=== PATIENT | male | born 1955 | race Caucasian/White ===

== ENCOUNTER 2020-07-28 09:51 | Outpatient (REF) | payer MEDICARE, BC, SELFPAY ==
[2020-07-28 12:07] LABS: Alanine Aminotransferase 11 U/L (0-40); Albumin Level 4.3 g/dL (3.5-5.0); Alkaline Phosphatase 77 U/L (39-117); Anion Gap 15 (12-20); Aspartate Amino Transferase 13 U/L (5-37); Bilirubin Total 0.2 mg/dL (0.0-1.0); Blood Urea Nitrogen 16 mg/dL (9-16); Calcium 8.9 mg/dL (8.4-10.2); Carbon Dioxide 24 mmol/L (22-29); Chloride 105 mmol/L (96-108); Cholesterol 226 mg/dL; Estimated Glomerular Filt Rate > 60; Glucose Fasting 118 mg/dL (60-99); HDL Cholesterol 54 mg/dL; LDL Cholesterol Calculated 160 mg/dl; Potassium 4.6 mmol/l (3.3-5.1); Sodium 139 mmol/L (135-145); Total Protein 6.6 g/dL (6.5-8.0); Triglycerides 63 mg/dL
[2020-07-28 12:13] LABS: Prostate Specific Antigen Scr 5.04 ng/mL (<0.05-4.0); TSH reflex Free T4 0.62 mIU/mL (0.32-4.0)
== END 2020-07-28 09:52 | disposition home or self-care (01) ==
LOC: HO.HMGCLDS 09:51
PROVIDERS: PCP Nurse Practitioner Family; Visit Provider Nurse Practitioner Family
DX: K21.9 Gastro-esophageal reflux disease without esophagitis (principal); E78.5 Hyperlipidemia, unspecified; Z12.5 Encounter for screening for malignant neoplasm of prostate
CPT/HCPCS: 80053; 80061; 84153; 84443

== ENCOUNTER → 2020-09-16 16:00 | Outpatient (BNVA) | payer MEDICARE, BC, SELFPAY | PROVIDERS: PCP Nurse Practitioner Family; Visit Provider Urology | DX: R97.20 Elevated prostate specific antigen [PSA] (principal) | CPT/HCPCS: Q3014 ==

== ENCOUNTER 2020-10-01 08:13 | Outpatient (REF) | payer MEDICARE, BC, SELFPAY ==
--- NOTE | ~2020-10-01 | XR_ITS ---
EXAMINATION: XR SHOULDER, RIGHT CLINICAL INFORMATION: Pain COMPARISON: None TECHNIQUE: AP external rotation, Grashey, scapular Y, and axillary views of the right shoulder. FINDINGS: Bone alignment is normal. No fracture or dislocation is seen. The glenohumeral joint is normal. There is arthritis at the acromioclavicular joint. Soft tissues are unremarkable. XR/XR shoulder RT min 2V IMPRESSION: Arthritis at the acromioclavicular joint.
[2020-10-01 11:48] LABS: Cholesterol 144 mg/dL; HDL Cholesterol 43 mg/dL; LDL Cholesterol Calculated 91 mg/dl; Triglycerides 52 mg/dL
== END 2020-10-01 08:14 | disposition home or self-care (01) ==
LOC: HO.HMGCLDS 08:13
PROVIDERS: Absent Provider Internal Medicine; PCP Nurse Practitioner Family; Visit Provider Nurse Practitioner Family
DX: E78.5 Hyperlipidemia, unspecified (principal); M25.511 Pain in right shoulder
CPT/HCPCS: 36415; 73030; 80061

== ENCOUNTER 2021-04-09 07:43 | Outpatient (REF) | payer MEDICARE, BC, SELFPAY ==
[2021-04-09 13:27] LABS: PSA,Total (Free>4and<10) 7.41 ng/mL (0.00-4.00)
[2021-04-11 13:02] LABS: Free Prostate Spec Ag 1.7 ng/mL; Percent Free Prostate Spec Ag 28 % (calc) (>25); Prostate Specific Ag Total 6.1 ng/mL (< OR = 4.0)
== END 2021-04-09 07:44 | disposition home or self-care (01) ==
LOC: HO.HMGCLDS 07:43
PROVIDERS: PCP Nurse Practitioner Family; Visit Provider Urology
DX: R97.20 Elevated prostate specific antigen [PSA] (principal); N40.1 Benign prostatic hyperplasia with lower urinary tract symptoms; N13.8 Other obstructive and reflux uropathy; Z12.5 Encounter for screening for malignant neoplasm of prostate
CPT/HCPCS: 36415; 84153; 84154

== ENCOUNTER → 2021-04-13 15:53 | Outpatient (BNVA) | payer MEDICARE, BC, SELFPAY | PROVIDERS: PCP Nurse Practitioner Family; Visit Provider Urology | CPT/HCPCS: 99212 ==

== ENCOUNTER 2021-09-13 13:13 | Outpatient (REF) | payer MEDICARE, BC, SELFPAY ==
[2021-09-13 14:51] LABS: PSA,Total (Free>4and<10) 4.73 ng/mL (0.00-4.00)
[2021-09-15 14:16] LABS: Free Prostate Spec Ag 1.2 ng/mL; Percent Free Prostate Spec Ag 27 % (calc) (>25); Prostate Specific Ag Total 4.5 ng/mL (< OR = 4.0)
== END 2021-09-13 13:14 | disposition home or self-care (01) ==
LOC: HO.HMGCLDS 13:13
PROVIDERS: PCP Urology; Visit Provider Urology
DX: Z12.5 Encounter for screening for malignant neoplasm of prostate (principal); N13.8 Other obstructive and reflux uropathy; N40.1 Benign prostatic hyperplasia with lower urinary tract symptoms
CPT/HCPCS: 36415; 84153; 84154

== ENCOUNTER → 2021-10-14 12:14 | Outpatient (BNVA) | payer MEDICARE, BC, SELFPAY | PROVIDERS: PCP Urology; Visit Provider Urology | DX: R97.20 Elevated prostate specific antigen [PSA] (principal); N40.1 Benign prostatic hyperplasia with lower urinary tract symptoms; N13.8 Other obstructive and reflux uropathy | CPT/HCPCS: Q3014 ==

== ENCOUNTER 2022-04-10 08:55 | Outpatient (REF) | payer MEDICARE, BC, SELFPAY ==
[2022-04-10 12:15] LABS: PSA,Total (Free>4and<10) 3.84 ng/mL (0.00-4.00)
== END 2022-04-10 08:56 | disposition home or self-care (01) ==
LOC: HO.HMGCLDS 08:55
PROVIDERS: Visit Provider Urology
DX: Z12.5 Encounter for screening for malignant neoplasm of prostate (principal); N13.8 Other obstructive and reflux uropathy; N40.1 Benign prostatic hyperplasia with lower urinary tract symptoms
CPT/HCPCS: 36415; 84153

== ENCOUNTER → 2022-04-18 12:06 | Outpatient (BNVA) | payer MEDICARE, BC, SELFPAY | PROVIDERS: Visit Provider Urology | DX: N40.1 Benign prostatic hyperplasia with lower urinary tract symptoms (principal); N13.8 Other obstructive and reflux uropathy; R97.20 Elevated prostate specific antigen [PSA] | CPT/HCPCS: Q3014 ==

== ENCOUNTER 2022-07-25 08:59 | Outpatient (REF) | payer MEDICARE, BC, SELFPAY ==
[2022-07-25 11:29] LABS: MANUAL DIFF FLAG NO
[2022-07-25 11:41] LABS: Basophils Percent Auto 0.6 % (0-2); Eosinophils Absolute Auto 0.1 X10*3/uL (0.0-0.4); Eosinophils Percent Auto 1.6 % (0-4); Hematocrit 45.6 % (42.0-52.0); Hemoglobin 14.8 g/dl (14.0-18.0); Imm Gran Abs Auto 0.02 X10*3/uL (0.00-0.03); Imm Gran Pct Auto 0.3 % (0.0-0.4); Lymphocytes Absolute Auto 1.9 X10*3/uL (1.2-4.9); Lymphocytes Percent Auto 30.6 % (20-40); Mean Corpuscular HGB Conc 32.5 g/dl (31.0-36.0); Mean Corpuscular Hemoglobin 27.7 pg (27.0-33.0); Mean Corpuscular Volume 85.2 fL (80.0-98.0); Mean Platelet Volume 10.7 fL (9.4-12.4); Monocytes Absolute Auto 0.6 X10*3/uL (0.1-1.2); Monocytes Percent Auto 9.8 % (2-11); Neutrophils Absolute Auto 3.5 x10*3/uL (2.0-8.3); Neutrophils Percent Auto 57.1 % (45-73); Platelet Count 307 X10*3/uL (160-400); Red Blood Count 5.35 X10*6/uL (4.60-5.80); Red Cell Distribution Width 13.2 % (11.0-16.0); White Blood Count 6.2 X10*3/uL (4.8-10.8)
[2022-07-25 13:43] LABS: Alanine Aminotransferase 18 U/L (0-40); Alkaline Phosphatase 80 U/L (39-117); Anion Gap 10 (12-20); Aspartate Amino Transferase 17 U/L (5-37); Bilirubin Total 0.8 mg/dL (0.0-1.0); Blood Urea Nitrogen 19 mg/dL (9-16); Calcium 8.9 mg/dL (8.4-10.2); Carbon Dioxide 29 mmol/L (22-29); Chloride 109 mmol/L (96-108); Cholesterol 179 mg/dL; Estimated Glomerular Filt Rate > 60; Glucose Fasting 100 mg/dL (60-99); HDL Cholesterol 37 mg/dL; LDL Cholesterol Calculated 124 mg/dl; Potassium 4.5 mmol/L (3.3-5.1); Sodium 143 mmol/L (135-145); TSH reflex Free T4 3.23 uIU/mL (0.32-4.0); Triglycerides 90 mg/dL
[2022-07-25 17:00] LABS: Appearance Urine Clear; Color Urine Yellow; Glucose Urine UA Negative (Negative); Leukocyte Esterase Urine Negative (Negative); Nitrite Urine Negative (Negative); Specific Gravity - Urine 1.025 (1.005-1.025); Urine Blood Negative (Negative); Urine Ketones Trace mg/dL (Negative); Urine Protein Trace mg/dL (Neg-Trace)
== END 2022-07-25 09:00 | disposition home or self-care (01) ==
LOC: HO.HMGCLDS 08:59
PROVIDERS: PCP Nurse Practitioner Family; Visit Provider Nurse Practitioner Family
DX: Z00.00 Encounter for general adult medical examination without abnormal findings (principal)
CPT/HCPCS: 36415; 80053; 80061; 81003; 84443; 85025

== ENCOUNTER 2022-09-06 11:21 | Outpatient (REF) | payer MEDICARE, BC, SELFPAY ==
[2022-09-06 14:44] LABS: Prostate Specific Antigen 4.68 ng/mL (<0.05-4.0)
== END 2022-09-06 11:22 | disposition home or self-care (01) ==
LOC: HO.HMGCLDS 11:21
PROVIDERS: PCP Nurse Practitioner Family; Visit Provider Urology
DX: R97.20 Elevated prostate specific antigen [PSA] (principal); Z12.5 Encounter for screening for malignant neoplasm of prostate
CPT/HCPCS: 36415; 84153

== ENCOUNTER → 2022-10-27 14:04 | Outpatient (BNVA) | payer MEDICARE, BC, SELFPAY | PROVIDERS: PCP Nurse Practitioner Family; Visit Provider Urology | DX: N40.1 Benign prostatic hyperplasia with lower urinary tract symptoms (principal); N13.8 Other obstructive and reflux uropathy; R97.20 Elevated prostate specific antigen [PSA] | CPT/HCPCS: Q3014 ==

== ENCOUNTER 2022-11-08 11:06 | Outpatient (REF) | payer MEDICARE, BC, SELFPAY | END 2022-11-08 11:07 | disposition home or self-care (01) | LOC: HO.SH 11:06 | PROVIDERS: Visit Provider Nurse Practitioner Family | DX: Z01.118 Encounter for examination of ears and hearing with other abnormal findings (principal); H90.3 Sensorineural hearing loss, bilateral | CPT/HCPCS: 92557; 92567 ==

== ENCOUNTER 2022-11-22 09:24 | Outpatient (REF) | payer MEDICARE, BC, SELFPAY ==
[2022-11-22 11:20] LABS: MANUAL DIFF FLAG NO
[2022-11-22 11:46] LABS: Basophils Absolute Auto 0.1 X10*3/uL (0.0-0.2); Basophils Percent Auto 0.9 % (0-2); Eosinophils Absolute Auto 0.1 X10*3/uL (0.0-0.4); Eosinophils Percent Auto 2.1 % (0-4); Hematocrit 45.3 % (42.0-52.0); Hemoglobin 14.9 g/dl (14.0-18.0); Imm Gran Abs Auto 0.01 X10*3/uL (0.00-0.03); Imm Gran Pct Auto 0.2 % (0.0-0.4); Lymphocytes Absolute Auto 1.9 X10*3/uL (1.2-4.9); Lymphocytes Percent Auto 35.4 % (20-40); Mean Corpuscular HGB Conc 32.9 g/dl (31.0-36.0); Mean Corpuscular Hemoglobin 27.5 pg (27.0-33.0); Mean Corpuscular Volume 83.6 fL (80.0-98.0); Mean Platelet Volume 10.6 fL (9.4-12.4); Monocytes Absolute Auto 0.6 X10*3/uL (0.1-1.2); Monocytes Percent Auto 11.4 % (2-11); Neutrophils Absolute Auto 2.6 x10*3/uL (2.0-8.3); Platelet Count 311 X10*3/uL (160-400); Red Blood Count 5.42 X10*6/uL (4.60-5.80); Red Cell Distribution Width 13.2 % (11.0-16.0); White Blood Count 5.3 X10*3/uL (4.8-10.8)
[2022-11-22 11:52] LABS: Alanine Aminotransferase 15 U/L (0-40); Albumin Level 3.9 g/dL (3.5-5.0); Alkaline Phosphatase 76 U/L (39-117); Anion Gap 10 (12-20); Aspartate Amino Transferase 19 U/L (5-37); Bilirubin Total 1.6 mg/dL (0.0-1.0); Blood Urea Nitrogen 18 mg/dL (9-16); Calcium 9.1 mg/dL (8.4-10.2); Carbon Dioxide 30 mmol/L (22-29); Chloride 106 mmol/L (96-108); Cholesterol 183 mg/dL; Estimated Glomerular Filt Rate > 60; Glucose Fasting 103 mg/dL (60-99); HDL Cholesterol 37 mg/dL; LDL Cholesterol Calculated 122 mg/dl; Potassium 4.9 mmol/L (3.3-5.1); Sodium 141 mmol/L (135-145); Total Protein 5.9 g/dL (6.5-8.0); Triglycerides 121 mg/dL
[2022-11-22 12:13] LABS: TSH reflex Free T4 2.79 uIU/mL (0.32-4.0)
[2022-11-22 14:07] LABS: Appearance Urine Cloudy; Color Urine Yellow; Glucose Urine UA Negative (Negative); Leukocyte Esterase Urine Negative (Negative); Nitrite Urine Negative (Negative); PH 7.5 (5.0-9.0); Urine Blood Negative (Negative); Urine Ketones Negative (Negative); Urine Protein Negative (Neg-Trace)
== END 2022-11-22 09:25 | disposition home or self-care (01) ==
LOC: HO.HMGCLDS 09:24
PROVIDERS: PCP Nurse Practitioner Family; Visit Provider Nurse Practitioner Family
DX: E78.5 Hyperlipidemia, unspecified (principal); R17 Unspecified jaundice
CPT/HCPCS: 36415; 80053; 80061; 81003; 84443; 85025

== ENCOUNTER 2022-12-12 13:21 | Outpatient (REF) | payer MEDICARE, BC, SELFPAY ==
--- NOTE | ~2022-12-12 | US_ITS ---
EXAMINATION: US ABDOMEN COMPLETE CLINICAL INFORMATION: Unspecified jaundice. COMPARISON: X-ray abdomen 10/25/2018. TECHNIQUE: Real-time imaging of the abdominal viscera. FINDINGS: PANCREAS: Normal. ABDOMINAL AORTA: The proximal, mid, and distal segments are normal in caliber. INFERIOR VENA CAVA: Visualized portions are normal. LIVER: The liver is normal in size. The liver contour is normal. Parenchymal echogenicity is normal. No focal hepatic lesion. There is no intrahepatic biliary duct dilatation seen. GALLBLADDER: Surgically absent. COMMON BILE DUCT: Normal in caliber measuring 0.4 cm in diameter. RIGHT KIDNEY: Normal. No hydronephrosis. No renal calculi or focal parenchymal lesions. The kidney measures 9.5 cm in maximum dimension. LEFT KIDNEY: Normal. No hydronephrosis. No renal calculi or focal parenchymal lesions. The kidney measures 10.8 cm in maximum dimension. SPLEEN: Normal. The spleen measures 9.5 cm in maximum dimension. FREE FLUID: None. US/US abdomen complete IMPRESSION: Unremarkable abdominal ultrasound.
== END 2022-12-12 13:22 | disposition home or self-care (01) ==
LOC: HO.US 13:21
PROVIDERS: PCP Nurse Practitioner Family; Visit Provider Nurse Practitioner Family
DX: R17 Unspecified jaundice (principal)
CPT/HCPCS: 76700

== ENCOUNTER 2023-01-18 13:24 | Outpatient (REF) | payer MEDICARE, BC, SELFPAY ==
[2023-01-18 14:43] LABS: Immature Retic Fraction 2.8 % (2.3-13.4)
[2023-01-18 15:12] LABS: Bilirubin Direct 0.2 mg/dL (0.0-0.5); Bilirubin Total 0.8 mg/dL (0.0-1.0)
[2023-01-22 17:33] LABS: Haptoglobin 125 mg/dL (43-212)
[2023-01-25 11:33] LABS: Transglutaminase Ab IgG <1.0 U/mL; Transglutaminase IgA <1.0 U/mL
== END 2023-01-18 13:25 | disposition home or self-care (01) ==
LOC: HO.HMGCLDS 13:24
PROVIDERS: PCP Nurse Practitioner Family; Visit Provider Nurse Practitioner Family
DX: R17 Unspecified jaundice (principal)
CPT/HCPCS: 36415; 82247; 82248; 83010; 85045; 86364

== ENCOUNTER 2023-04-26 09:28 | Outpatient (REF) | payer MEDICARE, SELFPAY ==
[2023-04-26 12:37] LABS: PSA,Total (Free>4and<10) 4.32 ng/mL (0.00-4.00)
[2023-04-27 13:54] LABS: Free Prostate Spec Ag 0.9 ng/mL; Percent Free Prostate Spec Ag 20 % (calc) (>25); Prostate Specific Ag Total 4.4 ng/mL (< OR = 4.0)
== END 2023-04-26 09:29 | disposition home or self-care (01) ==
LOC: HO.HMGCLDS 09:28
PROVIDERS: PCP Nurse Practitioner Family; Visit Provider Urology
DX: Z12.5 Encounter for screening for malignant neoplasm of prostate (principal); N40.1 Benign prostatic hyperplasia with lower urinary tract symptoms; N13.8 Other obstructive and reflux uropathy
CPT/HCPCS: 36415; 84153; 84154

== ENCOUNTER 2023-05-02 11:32 | Outpatient (AMB) | payer MEDICARE, BC, SELFPAY ==
--- NOTE | 2023-05-02 11:36 | A.OFFVIS_ITS ---
Intake Intake Visit Reasons: 6M PSA(set) Intake Note: Patient is present for PVR Urology Med: FINASTERIDE Antibiotic Allergy: NONE Blood Thinner: NONE Pharmacy: [facility] PVR: 123 mL Md Pediatric Allergist Required: No Allergies No Known Allergies Allergy (Verified 05/02/23 11:39) Medication List - Last Reconciled 05/02/23 by Scotty Martínez MD finasteride 5 mg PO DAILY 90 days HPI HPI Comments History of Present Illness Details Klever is a very pleasant male. He is a patient of Dr. Farrell. Seen for the following urologic conditions - lower urinary tract symptoms - elevated PSA PAT 2+ prostate Results discussed - PSA remains Follow-up 6 months Good effect from finasteride May take Sunday, Sunday, Sunday Elevated PSA/LUTS He presents for - further evaluation of elevated PSA Current management is finasteride - 3 times a week has slight rise from 3.8 up to 4.5 Laboratory investigations include - a total PSA evaluation 02/02 5.1, 08/08 5.1 - 04/09 6.1 F28%, 09/10 4.5 27%, 04/10 3.8, 09/11 4.5, 05/12 4.3 20% Imaging investigations include - none Individualized Prostate Cancer Risk Calculator - 5-10% risk of prostate cancer. A TRUS biopsy - has not been performed Symptoms include - 09/09 minimal Overall symptoms are mild Therapeutic plan will be - continue finasteride PSA surveillance PFSH Medical History Shoulder pain, right Surgical History History of neck surgery Hx of cholecystectomy Family History Father CKD (chronic kidney disease) Mother No problems noted. Maternal Grandmother Medical history non-contributory Social History Housing: House Alcohol intake: current Alcohol intake frequency: holidays/special occasions only Patient Tobacco Use Status: Former Tobacco user Quit Date: quit 23 years ago e-Cigarette/Vaping Use: Never Used Second Hand Smoke Exposure: Yes service: Yes Current occupational status: retired Cognitive needs: No Hearing needs: No Vision needs: No Review of Systems Const Denies chills and Denies fever(s) Card Reports no additional complaints and Denies syncope Resp Denies cough GI Denies abdominal pain and Denies heartburn Reports as per HPI and Denies change in libido Neuro Denies syncope Psych Denies change in libido Endo Denies change in libido Physical Exam Const General: cooperative, healthy appearing, comfortable and no acute distress Orientation/consciousness: patient oriented x3 HEENT Face and sinus: Yes normal facial exam Mouth: moist mucous membranes Neck Neck: Yes normal visual inspection, Yes full ROM and Yes trachea midline Chest Chest palpation & inspection: normal inspection of the chest Resp Effort & Inspection: normal respiratory effort, able to speak in complete sentences and no respiratory distress GI Inspection: Yes normal to inspection Rectal Exam - Male: Yes normal sphincter tone and Yes prostate normal Male General Exam: Yes normal external exam Penis: normal penis and circumcised Meatus: meatus normal Scrotum: scrotum normal Testes: Testes normal Back/Spine/Pelvis Cervical Spine: normal cervical lordosis Thoracic/Lumbar Spine: thoracic and lumbar spine normal to inspection Skin General skin exam: no rashes or lesions noted Neuro General: patient oriented x3, gait normal, tone normal and moves all extremities Extrem General: Yes normal to inspection and Yes capillary refill normal Assessment & Plan Assessment & Plan (1) BPH w urinary obs/LUTS: Code(s): N40.1 - Benign prostatic hyperplasia with lower urinary tract symptoms; N13.8 - Other obstructive and reflux uropathy Plan Six month follow-up PSA tele Orders: Orders AMB Post Void Residual by ultrasound Today N13.8 - Other obstructive and reflux uropathy, N40.1 - Benign prostatic hyperplasia with lower urinary tract symptoms, R17 - Unspecified jaundice PSA,Total (Free>4and<10) 6 Months R97.20 - Elevated prostate specific antigen [PSA] Patient Instructions: Imaging studies, laboratory and physical exam results were discussed and reviewed in detail. No major barriers to patient understanding were identified. An opportunity to ask questions regarding the treatment plan was provided. All questions were answered. The patient expressed understanding and agreement with the above treatment plan. The patient is aware they should contact our office by phone for worsening of their current condition or the appearance of new urologic symptoms. Compliance is encouraged with any medications and followup testing that is ordered. It is a privilege to participate in the urologic care of your patient. If you have any questions or concerns regarding treatment for the above conditions, or other urologic issues, please do not hesitate to contact me. The office telephone contact is [phone]. This note is constructed using voice recognition software. While every effort has been made to ensure accuracy publicity person errors may have been included. Yours sincerely, Dr Scotty Martínez MD, [facility] - Urology Providers of Expert, Compassionate Care for the Genitourinary System Coding Level of Care Code Est Pt Level 3 (63509) Diagnoses BPH w urinary obs/LUTS N40.1; N13.8
== END 2023-05-02 12:03 | disposition home or self-care (01) ==
PROVIDERS: PCP Nurse Practitioner Family; Visit Provider Urology
DX: N40.1 Benign prostatic hyperplasia with lower urinary tract symptoms (principal); N13.8 Other obstructive and reflux uropathy
CPT/HCPCS: 99213

== ENCOUNTER → 2023-05-02 11:32 | Outpatient (BNVA) | payer MEDICARE, BC, SELFPAY | PROVIDERS: Visit Provider Urology | DX: N40.1 Benign prostatic hyperplasia with lower urinary tract symptoms (principal); N13.8 Other obstructive and reflux uropathy | CPT/HCPCS: 99212 ==

== ENCOUNTER 2023-07-25 10:50 | Outpatient (AMB) | payer MEDICARE, BC, SELFPAY ==
--- NOTE | 2023-07-25 10:53 | A.OFFPC_ITS ---
Vital Signs 07/25/23 10:56 Weight 162 lb BP 118/80 Blood Pressure Location Lt brachial Position Sitting Pulse 51 Pulse Source Pulse Oximeter Pulse Oximetry (%) 100 Oxygen Delivery Method Room Air Intake Visit Reasons: PE Intake Note: Patient here for physical exam and would like to talk about acid reflux and has been taking his wifes omeprazole 20mg. last colonoscopy: 2020 and refuses to have another. Allergies No Known Allergies Allergy (Verified 07/25/23 10:58) Tobacco use date assessed: 11/21/22 Fall risk assessment: No Falls in past year Last assessed Fall Risk: 07/25/23 Dental Screening Dental Screen Date: 07/25/23 Did you have a dental visit in the last 12 months?: Yes Did you have a dental problem in the last 6 months where you did not have access to dental care?: No Was dental information given to patient?: Patient has dentist HPI PE HPI Details Pt is here for a PE. Will order labs. Colon screen is up to date. PSA is up to date, sees urology. Refused all vaccines today, except TdaP PFSH Medical History Shoulder pain, right Surgical History History of neck surgery Hx of cholecystectomy Family History Father CKD (chronic kidney disease) Mother No problems noted. Maternal Grandmother Medical history non-contributory Social History Housing: House Alcohol intake: current Alcohol intake frequency: holidays/special occasions only Patient Tobacco Use Status: Former Tobacco user Quit Date: quit 23 years ago e-Cigarette/Vaping Use: Never Used Second Hand Smoke Exposure: Yes service: Yes Current occupational status: retired Cognitive needs: No Hearing needs: No Vision needs: No Questionnaire PHQ-9 Over the last 2 weeks, how often have you been bothered by any of the following problems? 1. Little interest or pleasure in doing things: not at all 2. Feeling down, depressed, or hopeless: not at all 3. Trouble falling or staying asleep, or sleeping too much: not at all 4. Feeling tired or having little energy: not at all 5. Poor appetite or overeating: not at all 6. Feeling bad about yourself - or that you are a failure or have let yourself or your family down: not at all 7. Trouble concentrating on things, such as reading the newspaper or watching television: not at all 8. Moving or speaking so slowly that other people could have noticed. Or the opposite - being so fidgety or restless that you have been moving around a lot more than usual: not at all 9. Thoughts that you would be better off or of hurting yourself in some way: not at all Total score: 0 Depression Screening Interpretation: Negative Depression Screening Done: Yes [id number] - PHQ-9 Billing: Yes Source: Developed by Drs. Gigi Luque, Elina Keith, Jose Maria Hernandez and colleagues, with an educational wilfrid from [employer]. Thrive Questionnaire Date Thrive assessed: 07/25/23 I am a: Patient What is your living situation today?: I have a steady place to live Within the past 12 months, did the food you bought not last and you didn't have the money to get more?: Never true Within the past 12 months, did you worry whether your food would run out before you got money to buy more?: Never true Do you have trouble paying for medicines?: No Do you have trouble getting transportation to medical appointments?: No Do you have trouble paying your heating and electricity bill?: No Do you have trouble taking care of your child, family member or friend?: No Do you have trouble with day-to-day activities such as bathing, preparing meals, shopping, managing finances, etc.?: No Are you currently unemployed and looking for a job?: No Are you interested in more education?: No AUDIT C Alcohol Use Questionnaire (AUDIT-C) 1. How often do you have a drink containing alcohol?: Monthly or less 2. How many drinks containing alcohol do you have on a typical day when you are drinking?: 1 or 2 3. How often do you have six or more drinks on one occasion?: Never Total Score: 1 Score Reviewed/Action Taken: No JOSE CARLOS-7 AMB Questionnaire JOSE CARLOS-7 Date JOSE CARLOS - 7 assessed: 07/24/22 Source: Developed by Drs. Gigi Luque, Elina Keith, Jose Maria Hernandez and colleagues, with an educational wilfrid from [employer]. Review of Systems Const Denies chills and Denies fever(s) Eyes Denies blurry vision ENT Denies vertigo, Denies dizziness and Denies sore throat Card Denies chest pain at rest, Denies chest pain with activity, Denies diaphoresis, Denies dyspnea and Denies dyspnea on exertion Resp Denies cough, Denies dyspnea, Denies dyspnea on exertion and Denies wheezing GI Denies abdominal pain, Denies melena, Denies hematochezia, Denies constipation, Denies diarrhea and Denies loose stools Denies hematuria Musc Denies numbness and Denies tingling Skin/Breast Denies lesions Neuro Denies vertigo, Denies dizziness, Denies numbness and Denies tingling Psych Denies anxiety, Denies depression, Denies homicidal ideation, Denies suicidal ideation and Denies other (substance abuse) Aller/Immun Denies wheezing Physical exam (Primary Care) Vital Signs: Last Vital Signs Pulse 51 07/25/23 10:56 BP 118/80 07/25/23 10:56 Pulse Ox 100 07/25/23 10:56 Oxygen Delivery Method Room Air 07/25/23 10:56 Tobacco/Smoking Status: Tobacco use Status Tobacco use date assessed 11/21/22 07/25/23 10:55 Patient Tobacco Use Status Former Tobacco user 07/25/23 10:55 e-Cigarette/Vaping Use Never Used 07/25/23 10:55 PHQ-9: PHQ-9 Score PHQ-9: Total score 0 07/25/23 11:44 Depression Screening Interpretation: Negative Thrive Assessment: Date of Thrive Assessment Date Thrive assessed 07/25/23 07/25/23 11:44 Const General: cooperative Nutritional Appearance: well nourished Orientation/consciousness: patient oriented x3 HENMT Head: Yes normal to inspection, Yes normocephalic and Yes atraumatic Ears: TM's normal bilaterally Eyes General: appearance normal, both eyes and all related structures Alignment and Position: alignment normal and position normal Neck Neck: Yes normal visual inspection and Yes no lymphadenopathy Thyroid: Thyroid normal Resp Effort & Inspection: normal respiratory effort Auscultation: clear to auscultation bilaterally Cardio Rate: regular rate Rhythm: regular rhythm Heart sounds: S1 normal heart sound present, S2 normal heart sound present and no murmurs GI Palpation (GI): Soft to palpation and nontender Auscultation: normal bowel sounds Male General Exam: Yes normal external exam Penis: normal penis Scrotum: scrotum normal, testes descended bilaterally and no inguinal hernias Testes: no testicular mass Skin Rashes: no rashes Neuro General: patient oriented x3, moves all extremities, no focal motor deficits and deep tendon reflexes 2+ bilaterally Romberg Test: Negative Psych Appearance: grossly normal Mental Status: mental status grossly normal Speech and movement: Normal speech and movement present Affect: normal affect Attitude: cooperative Thought process: Normal thought process present Thought content: Normal thought content present Insight: Good insight present (Psych) Judgement: Good judgement present (Psych) Immunizations Boostrix Tdap 2.5 Lf unit-8 mcg-5 Lf/0.5 mL intramuscular syringe Performing Provider: YUVAL Purvis Performing Location: [facility] Administered by: GUTIERREZ Garner on 07/25/23 11:42 Dose Route Admin Location Dispensed Lot Number Expiration Date NDC Green [employer] Blender 0.5 mL IM Right Deltoid 0.5 mL [id number] 07/25/25 93708-208-33 Asl Analytical VIS Given Date VIS Provided VIS Publication Date 07/25/23 Single Vaccine 21 Eligibility Eligibility Date Funding Source Not [facility] Eligible 07/25/23 Private Assessment and Plan Assessment & Plan (1) Physical exam: Code(s): Z00.00 - Encounter for general adult medical examination without abnormal findings Plan: Labs ordered Plan The patient agreed to the use of a medical social consultant for this encounter. Scribed for YUVAL Weathers by oniel Salazar scribe, on 07/25/2023 at 11:15 EST. Orders: Orders Comprehensive [place]. Panel Fast Today Z00.00 - Encounter for general adult medical examination without abnormal findings Lipid Panel Today Z00.00 - Encounter for general adult medical examination without abnormal findings TDaP Immunization Today Z23 - Encounter for immunization Complete Blood Count Auto Diff Today Z00.00 - Encounter for general adult medical examination without abnormal findings TSH reflex Free T4 Today Z00.00 - Encounter for general adult medical examination without abnormal findings UA CC w/rflx Micro + Cult Today Z00.00 - Encounter for general adult medical examination without abnormal findings AMB EKG-In Office Today Z00.00 - Encounter for general adult medical examination without abnormal findings Medications: New omeprazole 20 mg PO DAILY 90 caps 1RF 90 days Coding Level of Care Code Est Pt Prev Care >65y(85162) Diagnoses Physical exam Z00.00
[2023-07-25 10:56] VITALS: BP 118/80; PULSE 51; O2SAT 100
== END 2023-07-25 14:27 | disposition home or self-care (01) ==
PROVIDERS: Visit Provider Nurse Practitioner Family
DX: Z00.00 Encounter for general adult medical examination without abnormal findings (principal); Z23 Encounter for immunization
CPT/HCPCS: 90471; 90715; 99397

== ENCOUNTER 2023-07-30 09:20 | Outpatient (REF) | payer MEDICARE, BC, SELFPAY ==
[2023-07-30 11:23] LABS: MANUAL DIFF FLAG NO
[2023-07-30 11:38] LABS: Basophils Percent Auto 0.7 % (0-2); Eosinophils Absolute Auto 0.1 X10*3/uL (0.0-0.4); Eosinophils Percent Auto 2.3 % (0-4); Hematocrit 46.2 % (42.0-52.0); Hemoglobin 15.2 g/dl (14.0-18.0); Imm Gran Abs Auto 0.02 X10*3/uL (0.00-0.03); Imm Gran Pct Auto 0.3 % (0.0-0.4); Lymphocytes Percent Auto 32.4 % (20-40); Mean Corpuscular HGB Conc 32.9 g/dl (31.0-36.0); Mean Corpuscular Hemoglobin 27.9 pg (27.0-33.0); Mean Corpuscular Volume 84.8 fL (80.0-98.0); Mean Platelet Volume 10.5 fL (9.4-12.4); Monocytes Absolute Auto 0.6 X10*3/uL (0.1-1.2); Monocytes Percent Auto 9.9 % (2-11); Neutrophils Absolute Auto 3.3 x10*3/uL (2.0-8.3); Neutrophils Percent Auto 54.4 % (45-73); Platelet Count 297 X10*3/uL (160-400); Red Blood Count 5.45 X10*6/uL (4.60-5.80); Red Cell Distribution Width 13.1 % (11.0-16.0); White Blood Count 6.1 X10*3/uL (4.8-10.8)
[2023-07-30 12:21] LABS: Alanine Aminotransferase 16 U/L (0-40); Albumin Level 3.9 g/dL (3.5-5.0); Alkaline Phosphatase 80 U/L (39-117); Anion Gap 11 (12-20); Aspartate Amino Transferase 17 U/L (5-37); Bilirubin Total 0.4 mg/dL (0.0-1.0); Blood Urea Nitrogen 23 mg/dL (9-16); Calcium 9.1 mg/dL (8.4-10.2); Carbon Dioxide 27 mmol/L (22-29); Chloride 108 mmol/L (96-108); Cholesterol 183 mg/dL (<200); Estimated Glomerular Filt Rate > 60; Glucose Fasting 102 mg/dL (60-99); HDL Cholesterol 43 mg/dL (>40); LDL Cholesterol Calculated 126 mg/dL (<100); Potassium 4.2 mmol/L (3.3-5.1); Sodium 142 mmol/L (135-145); TSH reflex Free T4 1.83 uIU/mL (0.32-4.0); Total Protein 6.2 g/dL (6.5-8.0); Triglycerides 73 mg/dL (<150)
[2023-07-30 13:24] LABS: Appearance Urine Clear; Color Urine Yellow; Glucose Urine UA Negative (Negative); Leukocyte Esterase Urine Negative (Negative); Nitrite Urine Negative (Negative); PH 6.5 (5.0-9.0); Specific Gravity - Urine 1.025 (1.005-1.025); Urine Blood Negative (Negative); Urine Ketones Negative (Negative); Urine Protein Negative (Neg-Trace)
== END 2023-07-30 09:21 | disposition home or self-care (01) ==
LOC: HO.HMGCLDS 09:20
PROVIDERS: PCP Nurse Practitioner Family; Visit Provider Nurse Practitioner Family
DX: Z00.00 Encounter for general adult medical examination without abnormal findings (principal)
CPT/HCPCS: 36415; 80053; 80061; 81003; 84443; 85025

== ENCOUNTER 2023-10-24 10:03 | Outpatient (REF) | payer MEDICARE, BC, SELFPAY | END 2023-10-24 10:04 | disposition home or self-care (01) | LOC: HO.HMGCLDS 10:03 | PROVIDERS: PCP Nurse Practitioner Family; Visit Provider Urology | DX: Z12.5 Encounter for screening for malignant neoplasm of prostate (principal); R97.20 Elevated prostate specific antigen [PSA] | CPT/HCPCS: 36415; 84153 ==

== ENCOUNTER 2023-10-30 09:04 | Outpatient (AMB) | payer MEDICARE, BC, SELFPAY ==
--- NOTE | 2023-10-30 09:03 | A.OFFVIS_ITS ---
Intake Intake Visit Reasons: 6M PSA(set) Intake Note: Patient presents today for a telehealth follow-up Meds- Finasteride Allergies to Antibiotic- No Known Allergies Blood Thinner- None Leasing Assistant Required: No Allergies No Known Allergies Allergy (Verified 10/30/23 09:18) Medication List - Last Reconciled 10/30/23 by Scotty Martínez MD finasteride 5 mg PO DAILY 90 days omeprazole 20 mg PO DAILY 90 days HPI HPI Comments History of Present Illness Details Klever is a very pleasant male. He is a patient of Dr. Farrell. Seen for the following urologic conditions - lower urinary tract symptoms - elevated PSA Telemedicine Evaluation 15 min Consultation Doximity Reginaldo Video attempted Six-month follow-up PSA Continue good effect Continue six-month surveillance Prior PAT 2+ prostate May take Sunday, Sunday, Sunday Elevated PSA/LUTS He presents for - further evaluation of elevated PSA Current management is finasteride - 3 times a week has slight rise from 3.8 up to 4.5 Laboratory investigations include - a total PSA evaluation 02/02 5.1, 08/08 5.1, 04/09 6.1 F28%, 09/10 4.5 27%, 04/10 3.8, 09/11 4.5, 05/12 4.3 20%, 11/10 3.8 Imaging investigations include - none Individualized Prostate Cancer Risk Calculator - 5-10% risk of prostate cancer. A TRUS biopsy - has not been performed Symptoms include - 09/09 minimal Overall symptoms are mild Therapeutic plan will be - continue finasteride PSA surveillance [facility] Medical History Shoulder pain, right Surgical History History of neck surgery Hx of cholecystectomy Family History Father CKD (chronic kidney disease) Mother No problems noted. Maternal Grandmother Medical history non-contributory Social History Housing: House Alcohol intake: current Alcohol intake frequency: holidays/special occasions only Patient Tobacco Use Status: Former Tobacco user Quit Date: quit 23 years ago e-Cigarette/Vaping Use: Never Used Second Hand Smoke Exposure: Yes service: Yes Current occupational status: retired Cognitive needs: No Hearing needs: No Vision needs: No Review of Systems Const All systems reviewed & are unremarkable except as noted in HPI and below Reports no additional complaints Resp Reports no additional complaints GI Reports no additional complaints Reports as per HPI Musc Reports no additional complaints Physical Exam Telemedicine evaluation Appropriate responses Regular breathing rate and rhythm HEENT Head: Yes normal to inspection Ears: hearing grossly normal bilaterally Eyes General: appearance normal, both eyes and all related structures Neck Neck: Yes normal visual inspection Chest Chest palpation & inspection: normal inspection of the chest Resp Effort & Inspection: normal respiratory effort and able to speak in complete sentences Assessment & Plan Assessment & Plan (1) BPH w urinary obs/LUTS: Code(s): N40.1 - Benign prostatic hyperplasia with lower urinary tract symptoms; N13.8 - Other obstructive and reflux uropathy (2) Elevated PSA: Code(s): R97.20 - Elevated prostate specific antigen [PSA] Plan Six-month follow-up PSA office mid level Orders: Orders PSA,Total (Free>4and<10) 6 Months R97.20 - Elevated prostate specific antigen [PSA] Medications: Refilled finasteride 5 mg PO DAILY 90 tabs 1RF 90 days N13.8 - Other obstructive and reflux uropathy, N40.1 - Benign prostatic hyperplasia with lower urinary tract symptoms Patient Instructions: Imaging studies, laboratory and physical exam results were discussed and reviewed in detail. No major barriers to patient understanding were identified. An opportunity to ask questions regarding the treatment plan was provided. All questions were answered. The patient expressed understanding and agreement with the above treatment plan. The patient is aware they should contact our office by phone for worsening of their current condition or the appearance of new urologic symptoms. Compliance is encouraged with any medications and followup testing that is ordered. It is a privilege to participate in the urologic care of your patient. If you have any questions or concerns regarding treatment for the above conditions, or other urologic issues, please do not hesitate to contact me. The office telephone contact is [phone]. This note is constructed using voice recognition software. While every effort has been made to ensure accuracy song writer errors may have been included. Yours sincerely, Dr Scotty Marítnez MD, [facility] - Urology Providers of Expert, Compassionate Care for the Genitourinary System Telehealth Telehealth Location of provider rendering services: practice address Location of patient: address on file Patient Identification confirmed using: Name, : Yes Telehealth method: video Patient verbally consented to treatment: Yes Patient verbally consented to billing insurance company: Yes Patient informed of any privacy concerns related to visit: Yes Coding Level of Care Code Tele Est Pt Level 3 (99960) Diagnoses BPH w urinary obs/LUTS N40.1; N13.8 Elevated PSA R97.20
== END 2023-10-30 11:06 | disposition home or self-care (01) ==
LOC: HO.HUSH 09:04
PROVIDERS: PCP Nurse Practitioner Family; Visit Provider Urology
DX: N40.1 Benign prostatic hyperplasia with lower urinary tract symptoms (principal); N13.8 Other obstructive and reflux uropathy; R97.20 Elevated prostate specific antigen [PSA]
CPT/HCPCS: 99213

== ENCOUNTER → 2023-10-30 09:04 | Outpatient (BNVA) | payer MEDICARE, BC, SELFPAY | PROVIDERS: PCP Nurse Practitioner Family; Visit Provider Urology ==

== ENCOUNTER 2023-12-10 13:55 | Outpatient (AMB) | payer MEDICARE, BC, SELFPAY ==
[2023-12-10 14:10] VITALS: BP 160/90; PULSE 74; TEMP 36.3; O2SAT 97; BMI 25.5
--- NOTE | 2023-12-10 14:10 | MHC.OFFWIV ---
Intake Vital Signs 12/10/23 14:10 Height 5 ft 8 in Weight 168 lb BMI 25.5 BP 160/90 H Blood Pressure Location Lt brachial Position Sitting Pulse 74 Pulse Source Pulse Oximeter Temp 97.3 F Temp Source Temporal Artery Scan Pulse Oximetry (%) 97 Oxygen Delivery Method Room Air Intake Visit Reasons: EP Lump in chest Intake Note: pt is here today for lump on lft side of chest started 1 week ago Patient Tobacco Use Status: Former Tobacco user Quit Date: quit 23 years ago Allergies No Known Allergies Allergy (Verified 12/10/23 14:37) Medication List - Last Reconciled 12/10/23 by Nahum Suggs MD finasteride 5 mg PO DAILY 90 days omeprazole 20 mg PO DAILY 90 days Do you need a note to return to daycare/school/sports/work: No HPI EP Lump in chest HPI Details 68 yr old male presents to the office for a sick visit. Patient noticed a lump in the left breast two weeks ago. Not painful, no discharge from the breast. No fatigue symptoms. No weight loss. No change in appetite. Returned from [place] a month ago, came down with a respiratory infection which has all subsided [facility] Medical History Shoulder pain, right Surgical History History of neck surgery Hx of cholecystectomy Family History Father CKD (chronic kidney disease) Mother No problems noted. Maternal Grandmother Medical history non-contributory Social History Housing: House Alcohol intake: current Alcohol intake frequency: holidays/special occasions only Patient Tobacco Use Status: Former Tobacco user Quit Date: quit 23 years ago e-Cigarette/Vaping Use: Never Used Second Hand Smoke Exposure: Yes service: Yes Current occupational status: retired Cognitive needs: No Hearing needs: No Vision needs: No Physical Exam Vital Signs: Last Vital Signs Temp 97.3 F 12/10/23 14:10 Pulse 74 12/10/23 14:10 BP 160/90 H 12/10/23 14:10 Pulse Ox 97 12/10/23 14:10 Oxygen Delivery Method Room Air 12/10/23 14:10 BMI result Body Mass Index 25.5 Const General: cooperative and healthy appearing Nutritional Appearance: well nourished Orientation/consciousness: patient oriented x3 Limitations: no limitations HEENT Head: Yes normal to inspection Eyes General: appearance normal, both eyes and all related structures Neck Neck: Yes normal visual inspection Chest Other: Left breast: lump palpable in the left lateral margin. Approx 4 cm in size. Indistinguishable margins. Soft consistency. Chest palpation & inspection: normal palpation of entire chest wall Resp Effort & Inspection: normal respiratory effort Neuro General: patient oriented x3 Assessment & Plan Assessment & Plan (1) Lump in chest: Code(s): R22.2 - Localized swelling, mass and lump, trunk Plan: Cxr is unrmearkable. Mammogram and US have been ordered. WIll call with results. Orders: Orders XR chest 2V Today R22.2 - Localized swelling, mass and lump, trunk Coding Level of Care Code Est Pt Level 4 (46518) Diagnoses Lump in chest R22.2
== END 2023-12-10 15:28 | disposition home or self-care (01) ==
PROVIDERS: PCP Nurse Practitioner Family; Visit Provider Internal Medicine
DX: R22.2 Localized swelling, mass and lump, trunk (principal)
CPT/HCPCS: 99214

== ENCOUNTER 2023-12-10 14:30 | Outpatient (REF) | payer MEDICARE, BC, SELFPAY ==
--- NOTE | ~2023-12-10 | XR_ITS ---
EXAMINATION: XR CHEST CLINICAL INFORMATION: Localized swelling, mass or lump COMPARISON: Previous chest x-ray November 2014 TECHNIQUE: 2 views of the chest were obtained. FINDINGS: The cardiac and mediastinal contours are stable. The lungs are clear. No pleural effusion or pneumothorax. There is a mild T12 vertebral body compression fracture. This does not appear acute but is new in the interval from 2015 exam. Bony structures are otherwise unremarkable. XR/XR chest 2V IMPRESSION: No evidence for acute disease in the chest.
== END 2023-12-10 14:31 | disposition home or self-care (01) ==
LOC: HO.HMGCX 14:30
PROVIDERS: PCP Nurse Practitioner Family; Visit Provider Internal Medicine
DX: R22.2 Localized swelling, mass and lump, trunk (principal)
CPT/HCPCS: 71046

== ENCOUNTER 2023-12-13 08:44 | Outpatient (REF) | payer MEDICARE, BC, SELFPAY ==
--- NOTE | ~2023-12-13 | MM_ITS ---
EXAMINATION: MM DIAGNOSTIC DIGITAL BREAST TOMOSYNTHESIS, BILATERAL US BREAST LIMITED, LEFT MAMMOGRAPHY: CLINICAL INFORMATION: Patient complaining of palpable mass left breast upper outer quadrant. 68-year-old male. COMPARISON: Mammography: None. Baseline exam. TECHNIQUE: Digital breast tomosynthesis is performed in both the craniocaudal and mediolateral oblique views along with computer-aided detection (CAD). Synthesized 2D images are generated from the tomosynthesis. In addition, full-field left 3-D digital mediolateral view was performed, as well as a spot compression 3-D digital left CC view. FINDINGS: The breasts are almost entirely fatty (ACR BI-RADS breast composition Category a). Within the upper outer quadrant of the left breast, there is a fat density encapsulated oval circumscribed fat density mass consistent with a lipoma, measuring approximately 5.0 x 2.9 x 5.6 cm. This correlates well with the palpable focus of concern, with the BB marker placed directly over. Otherwise, no additional masses, suspicious calcifications, areas of architectural distortion, or retroareolar breast tissue development are identified. ULTRASOUND: CLINICAL INFORMATION: Evaluate fatty mass left breast upper outer quadrant, palpable. COMPARISON: None TECHNIQUE: Targeted sonographic evaluation was performed using a high frequency linear transducer. Attention was given to the upper outer quadrant of the left breast. Selected archived documentation. FINDINGS: LEFT BREAST: There is predominantly fatty breast tissue. There is an encapsulated circumscribed fat attenuation mass in the 1:00 axis of the left breast, a CM from the nipple, measuring approximately 5.1 x 2.9 x 5.6 cm. There is scant internal blood flow on color Doppler imaging. There is good through transmission. There is a central stellate region of probable scar, a common finding in lipomas. There are no suspicious features. This lies directly on the pectoralis fascia. The posterior margin lies approximately 1.8 cm from the surface of the skin. There is no additional MM/MM tomosynthesis diagnostic BI IMPRESSION: There are no findings in either breast concerning for malignancy. There is a large circumscribed lipoma without suspicious features in the left breast at the 1:00 axis, 8 cm from the nipple, correlating with the palpable focus of concern. This is a benign finding. Should this be causing a cosmetic abnormality, or the asymptomatic with pain or discomfort, or becomes larger over time, Recommend clinical/surgical management. OVERALL ASSESSMENT: Mammography: BI-RADS 2 - Benign Findings Ultrasound: BI-RADS 2 - Benign Findings RECOMMENDATION: 1. Patient should be managed based on the clinical impression, as detailed above. Results were provided to the patient at time of visit by the technologist. This patient's information was entered into a reminder system with a target due date for their next mammogram.
== END 2023-12-13 08:45 | disposition home or self-care (01) ==
LOC: HO.MAMMO 08:44
PROVIDERS: PCP Nurse Practitioner Family; Visit Provider Internal Medicine
DX: N63.25 Unspecified lump in the left breast, overlapping quadrants (principal)
CPT/HCPCS: 76642; 77062; 77066

== ENCOUNTER → 2023-12-13 09:00 | Outpatient (BNV) | payer MEDICARE, BC, SELFPAY | PROVIDERS: PCP Nurse Practitioner Family; Visit Provider Radiology Diagnostic Radiology | DX: D24.2 Benign neoplasm of left breast (principal) | CPT/HCPCS: 76642; 77066; G0279 ==

== ENCOUNTER 2023-12-20 19:39 | Outpatient (REF) | payer MEDICARE, BC, SELFPAY ==
--- NOTE | ~2023-12-20 | MR_ITS ---
EXAMINATION: MR CERVICAL SPINE WITHOUT CONTRAST CLINICAL INFORMATION: Cervical disc disorder, cervical radiculopathy COMPARISON: MRI cervical spine on 05/10/2018 TECHNIQUE: MRI of the cervical spine was obtained using routine sequences without contrast. FINDINGS: The visualized cervical vertebrae are intact. No focal bone lesion with abnormal signal can be seen. Evaluation of the intervertebral discs show: C2/C3: Intervertebral disc height is normal, with normal T2 signal. No focal disc herniation is seen. Bilateral C2-C3 neural foramina are mildly stenosed. There is moderate spinal stenosis at upper C3 level with AP diameter of the spinal canal reduced to 8.3 mm. Bilateral apophyseal joints are intact with normal alignment. C3/C4: Intervertebral disc height is markedly decreased, with mild loss of T2 signal. Mild posterior disc protrusion is seen. Bilateral C3-C4 neural foramina are severely stenosed. There is marked spinal stenosis with AP diameter of the spinal canal reduced to 7.3 mm. Bilateral apophyseal joints are intact with normal alignment. C4/C5: There is C4-C5 ACDF, fixation with anterior metallic plate and cortical screws. Bilateral C4-C5 neural foramina are markedly stenosed. There is mild spinal stenosis with AP diameter of the spinal canal reduced to 9.3 mm. Bilateral apophyseal joints are intact with normal alignment. C5/C6: Intervertebral disc height is markedly decreased, with mild loss of T2 signal. Mild posterior disc protrusion is seen. Bilateral C5-C6 neural foramina are moderately stenosed. There is marked spinal stenosis with AP diameter of the spinal canal reduced to 7.6 mm. Bilateral apophyseal joints are intact with normal alignment. C6/C7: Intervertebral disc height is markedly decreased, with mild loss of T2 signal. Mild posterior disc protrusion is seen. Bilateral C6-C7 neural foramina are severely stenosed. Bilateral apophyseal joints are intact with normal alignment. C7/T1: There is persistent anterior C7 on T1 displacement by 0.3 cm, with associated exposure of intervertebral disc. Intervertebral disc height is normal, with normal T2 signal. No focal disc herniation is seen. Bilateral C7-T1 neural foramina are patent. Bilateral apophyseal joints are intact with normal alignment. Cervical spinal cord is normal in position. At C5-C6 junction, left lateral cervical spinal cord intramedullary T2 hyperintense lesion is seen measuring 0.1 cm in AP diameter, 0.2 cm in width, 0.7 cm in vertical height, series 6 image #17, series 3 image #7. An asymmetric oval shaped T2 hyperintense lesion is seen filling the right vallecula, measuring 0.6 cm in AP diameter, 1.0 cm in width, 0.6 cm in vertical height, unchanged. MR/MR cervical spine wo con IMPRESSION: 1. Unchanged status post C4-C5 ACDF, fixation anterior metallic plate and cortical screws. 2. Unchanged grade 1 C7-T1 anterolisthesis with exposure of intervertebral disc. 3. Persistent Marked C3-C4, C5-C6 and C6-C7 spinal stenosis, Moderate upper C3 spinal stenosis. 4. Unchanged Severe bilateral C3-C4, bilateral C4-C5, bilateral C5-C6 and bilateral C6-C7 neural foraminal stenosis. 5. 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 6. Asymmetric oval shaped T2 hyperintense lesion filling the right vallecula, not included in the [id number] on previous MRI. Findings could represent retained secretion, redundant mucosa or asymmetric enlargement of right lingual tonsil. Direct visualization is recommended.
== END 2023-12-20 19:40 | disposition home or self-care (01) ==
LOC: HO.MRI 19:39
PROVIDERS: PCP Nurse Practitioner Family; Visit Provider Nurse Practitioner Family
DX: M50.90 Cervical disc disorder, unspecified, unspecified cervical region (principal)
CPT/HCPCS: 72141

== ENCOUNTER 2024-01-15 14:00 | Outpatient (AMB) | payer MEDICARE, BC, SELFPAY ==
[2024-01-15 14:09] VITALS: BP 152/80; PULSE 78; O2SAT 98; BMI 25.4
--- NOTE | 2024-01-15 14:09 | MHC.PC.OV ---
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 Allergies No Known Allergies Allergy (Verified 01/15/24 14:12) Medication List - Last Reconciled 01/15/24 by YUVAL Purvis finasteride 5 mg PO DAILY 90 days omeprazole 20 mg PO DAILY 90 days Tobacco use date assessed: 01/15/24 Fall risk assessment: No Falls in past year Last assessed Fall Risk: 01/15/24 Dental Screening Dental Screen Date: 01/15/24 Did you have a dental visit in the last 12 months?: Yes Did you have a dental problem in the last 6 months where you did not have access to dental care?: No Was dental information given to patient?: Patient has dentist HPI Discuss US/referral HPI Details HTN: Blood pressure is elevated today, though repeat is stable. Denies chest pain, shortness of breath, headache, dizziness, and blurred vision. Pt had an incidental finding of an asymmetric oval shaped T2 hyperintense lesion filling the right vallecula, not included in the [id number] on previous MRI. Will refer to ENT. [facility] Medical History Shoulder pain, right Surgical History History of neck surgery Hx of cholecystectomy Family History Father CKD (chronic kidney disease) Mother No problems noted. Maternal Grandmother Medical history non-contributory Social History Housing: House Alcohol intake: current Alcohol intake frequency: holidays/special occasions only Patient Tobacco Use Status: Former Tobacco user Quit Date: quit 23 years ago e-Cigarette/Vaping Use: Never Used Second Hand Smoke Exposure: Yes service: Yes Current occupational status: retired Cognitive needs: No Hearing needs: No Vision needs: No Questionnaire PHQ-9 Over the last 2 weeks, how often have you been bothered by any of the following problems? 1. Little interest or pleasure in doing things: not at all 2. Feeling down, depressed, or hopeless: not at all 3. Trouble falling or staying asleep, or sleeping too much: not at all 4. Feeling tired or having little energy: not at all 5. Poor appetite or overeating: not at all 6. Feeling bad about yourself - or that you are a failure or have let yourself or your family down: not at all 7. Trouble concentrating on things, such as reading the newspaper or watching television: not at all 8. Moving or speaking so slowly that other people could have noticed. Or the opposite - being so fidgety or restless that you have been moving around a lot more than usual: not at all 9. Thoughts that you would be better off or of hurting yourself in some way: not at all Total score: 0 Depression Screening Interpretation: Negative Depression Screening Done: Yes [id number] - PHQ-9 Billing: Yes Source: Developed by Drs. Gigi Luque, Elina Keith, Jose Maria Hernandez and colleagues, with an educational wilfrid from [employer]. Thrive Questionnaire Date Thrive assessed: 01/15/24 I am a: Patient What is your living situation today?: I have a steady place to live Within the past 12 months, did the food you bought not last and you didn't have the money to get more?: Never true Within the past 12 months, did you worry whether your food would run out before you got money to buy more?: Never true Do you have trouble paying for medicines?: No Do you have trouble getting transportation to medical appointments?: No Do you have trouble paying your heating and electricity bill?: No Do you have trouble taking care of your child, family member or friend?: No Do you have trouble with day-to-day activities such as bathing, preparing meals, shopping, managing finances, etc.?: No Are you currently unemployed and looking for a job?: No Are you interested in more education?: No Currently or been in a relationship where the following occur: no concerns reported THRIVE Score: 0 AUDIT C Alcohol Use Questionnaire (AUDIT-C) 1. How often do you have a drink containing alcohol?: Monthly or less 2. How many drinks containing alcohol do you have on a typical day when you are drinking?: 1 or 2 3. How often do you have six or more drinks on one occasion?: Never Total Score: 1 Score Reviewed/Action Taken: No JOSE CARLOS-7 AMB Questionnaire JOSE CARLOS-7 Date JOSE CARLOS - 7 assessed: 01/15/24 Feeling nervous, anxious, or on edge: 0 = Not at all Not being able to stop or control worryin = Not at all Worrying too much about different things: 0 = Not at all Trouble relaxin = Not at all Being so restless that it is hard to sit still: 0 = Not at all Becoming easily annoyed or irritable: 0 = Not at all Feeling afraid as if something awful might happen: 0 = Not at all Total JOSE CARLOS-7 score (0-4 normal; 5-9 mild; 10-14 moderate; 15-21 severe): 0 Source: Developed by Drs. Gigi Luque, Elina Keith, Jose Maria Hernandez and colleagues, with an educational wilfrid from [employer]. JOSE CARLOS-7 Assessment Billing JOSE CARLOS-7 Assessment Tool: JOSE CARLOS-7 Assessment [id number] Review of Systems Const Reports as per HPI Physical exam (Primary Care) Vital Signs: Last Vital Signs Pulse 78 01/15/24 14:09 BP 136/82 01/15/24 14:47 Pulse Ox 98 01/15/24 14:09 Oxygen Delivery Method Room Air 01/15/24 14:09 BMI result Body Mass Index 25.4 Tobacco/Smoking Status: Tobacco use Status Tobacco use date assessed 01/15/24 01/15/24 14:13 Patient Tobacco Use Status Former Tobacco user 01/15/24 14:13 e-Cigarette/Vaping Use Never Used 01/15/24 14:13 PHQ-9: PHQ-9 Score PHQ-9: Total score 0 01/15/24 14:48 Depression Screening Interpretation: Negative Thrive Assessment: Date of Thrive Assessment Date Thrive assessed 01/15/24 01/15/24 14:13 Currently or been in a relationship where the following occur: no concerns reported Const General: cooperative Orientation/consciousness: patient oriented x3 Resp Effort & Inspection: normal respiratory effort Auscultation: clear to auscultation bilaterally Cardio Rate: regular rate Rhythm: regular rhythm Heart sounds: S1 normal heart sound present and S2 normal heart sound present Neuro General: patient oriented x3 Psych Appearance: grossly normal Mental Status: mental status grossly normal Speech and movement: Normal speech and movement present Affect: normal affect Attitude: cooperative Thought process: Normal thought process present Thought content: Normal thought content present Insight: Good insight present (Psych) Judgement: Good judgement present (Psych) Assessment and Plan Assessment & Plan (1) Lesion of pharynx: Code(s): J39.2 - Other diseases of pharynx Plan: Referred to ENT (2) HTN (hypertension): Code(s): I10 - Essential (primary) hypertension Plan: Labs ordered Plan The patient agreed to the use of a medical records manager for this encounter. Scribed for YUVAL Weathers by Valarie Larry medical records manager, on 01/15/2024 at 14:35 EST. Orders: Orders Complete Blood Count Auto Diff Today I10 - Essential (primary) hypertension TSH reflex Free T4 Today I10 - Essential (primary) hypertension Lipid Panel Today I10 - Essential (primary) hypertension Comprehensive [place]. Panel Fast Today I10 - Essential (primary) hypertension UA CC w/rflx Micro + Cult Today I10 - Essential (primary) hypertension Referrals Ear/Nose/Throat Referral J39.2 - Other diseases of pharynx Coding Level of Care Code Est Pt Level 3 (86917) Diagnoses Lesion of pharynx J39.2 HTN (hypertension) I10 Additional Codes JOSE CARLOS-7 Assessment Billing - JOSE CARLOS-7 Assessment Tool: JOSE CARLOS-7 Assessment [id number] ([id number])
[2024-01-15 14:47] VITALS: BP 136/82
== END 2024-01-15 16:31 | disposition home or self-care (01) ==
PROVIDERS: PCP Nurse Practitioner Family; Visit Provider Nurse Practitioner Family
DX: J39.2 Other diseases of pharynx (principal); I10 Essential (primary) hypertension
CPT/HCPCS: 99213

== ENCOUNTER 2024-01-25 08:06 | Outpatient (REF) | payer MEDICARE, BC, SELFPAY ==
[2024-01-25 10:24] LABS: MANUAL DIFF FLAG NO
[2024-01-25 10:37] LABS: Appearance Urine Clear; Color Urine Yellow; Glucose Urine UA Negative (Negative); Leukocyte Esterase Urine Negative (Negative); Nitrite Urine Negative (Negative); PH 6.5 (5.0-9.0); Urine Blood Negative (Negative); Urine Ketones Negative (Negative); Urine Protein Negative (Neg-Trace)
[2024-01-25 10:47] LABS: Basophils Percent Auto 0.6 % (0-2); Eosinophils Absolute Auto 0.1 X10*3/uL (0.0-0.4); Eosinophils Percent Auto 1.7 % (0-4); Hematocrit 43.9 % (42.0-52.0); Hemoglobin 14.6 g/dl (14.0-18.0); Imm Gran Abs Auto 0.02 X10*3/uL (0.00-0.03); Imm Gran Pct Auto 0.4 % (0.0-0.4); Lymphocytes Absolute Auto 1.9 X10*3/uL (1.2-4.9); Lymphocytes Percent Auto 34.6 % (20-40); Mean Corpuscular HGB Conc 33.3 g/dl (31.0-36.0); Mean Corpuscular Hemoglobin 28.1 pg (27.0-33.0); Mean Corpuscular Volume 84.4 fL (80.0-98.0); Mean Platelet Volume 10.8 fL (9.4-12.4); Monocytes Absolute Auto 0.5 X10*3/uL (0.1-1.2); Monocytes Percent Auto 9.6 % (2-11); Neutrophils Absolute Auto 2.9 x10*3/uL (2.0-8.3); Neutrophils Percent Auto 53.1 % (45-73); Platelet Count 297 X10*3/uL (160-400); Red Cell Distribution Width 13.3 % (11.0-16.0); White Blood Count 5.4 X10*3/uL (4.8-10.8)
[2024-01-25 11:13] LABS: Alanine Aminotransferase 19 U/L (0-40); Albumin Level 3.9 g/dL (3.5-5.0); Alkaline Phosphatase 82 U/L (39-117); Anion Gap 12 (12-20); Aspartate Amino Transferase 21 U/L (5-37); Bilirubin Total 0.6 mg/dL (0.0-1.0); Blood Urea Nitrogen 22 mg/dL (9-16); Calcium 8.8 mg/dL (8.4-10.2); Carbon Dioxide 24 mmol/L (22-29); Chloride 108 mmol/L (96-108); Cholesterol 185 mg/dL (<200); Estimated Glomerular Filt Rate > 60; Glucose Fasting 97 mg/dL (60-99); HDL Cholesterol 38 mg/dL (>40); LDL Cholesterol Calculated 129 mg/dL (<100); Potassium 4.2 mmol/L (3.3-5.1); Sodium 140 mmol/L (135-145); Total Protein 6.1 g/dL (6.5-8.0); Triglycerides 91 mg/dL (<150)
[2024-01-25 11:19] LABS: TSH reflex Free T4 3.38 uIU/mL (0.32-4.0)
== END 2024-01-25 08:07 | disposition home or self-care (01) ==
LOC: HO.HMGCLDS 08:06
PROVIDERS: PCP Nurse Practitioner Family; Visit Provider Nurse Practitioner Family
DX: I10 Essential (primary) hypertension (principal)
CPT/HCPCS: 36415; 80053; 80061; 81003; 84443; 85025

== ENCOUNTER 2024-04-25 10:06 | Outpatient (REF) | payer MEDICARE, BC, SELFPAY ==
[2024-04-25 14:21] LABS: PSA,Total (Free>4and<10) 3.42 ng/mL (0.00-4.00)
== END 2024-04-25 10:07 | disposition home or self-care (01) ==
LOC: HO.HMGCLDS 10:06
PROVIDERS: PCP Nurse Practitioner Family; Visit Provider Urology
DX: R97.20 Elevated prostate specific antigen [PSA] (principal); Z12.5 Encounter for screening for malignant neoplasm of prostate
CPT/HCPCS: 36415; 84153

== ENCOUNTER 2024-05-01 11:24 | Outpatient (AMB) | payer MEDICARE, BC, SELFPAY ==
--- NOTE | 2024-05-01 11:38 | MHC.OFFVIS ---
Intake Visit Reasons: 6M Follow Up-PSA(set) Intake Note: Patient is Present for Follow Up PSA Urology Medication: Finasteride Antibiotic Allergies: None Blood Thinners:None Recent PSA: 04/25/24- PSA 3.42 Last PSA: 3.80 Career Professional Required: No Accompanied by: Self / Same As Patient Allergies No Known Allergies Allergy (Verified 05/01/24 11:42) HPI Comments Details: Klever is a very pleasant male. He is a patient of Dr. Farrell. Seen for the following urologic conditions - lower urinary tract symptoms - elevated PSA Six-month follow-up Continue good effect - PSA 3.4 Prior PAT 2+ prostate Would prefer to take medication daily 12 month follow-up Elevated PSA/LUTS He presents for - further evaluation of elevated PSA Current management is finasteride - 3 times a week has slight rise from 3.8 up to 4.5 Laboratory investigations include - a total PSA evaluation 02/02 5.1, 08/08 5.1, 04/09 6.1 F28%, 09/10 4.5 27%, 04/10 3.8, 09/11 4.5, 05/12 4.3 20%, 11/10 3.8, 05/13 3.4 Imaging investigations include - none Individualized Prostate Cancer Risk Calculator - 5-10% risk of prostate cancer. A TRUS biopsy - has not been performed Symptoms include - 09/09 minimal Overall symptoms are mild Therapeutic plan will be - continue finasteride PSA surveillance PFSH Medical History Shoulder pain, right Surgical History History of neck surgery Hx of cholecystectomy Family History Father CKD (chronic kidney disease) Mother No problems noted. Maternal Grandmother Medical history non-contributory Social History Housing: House Alcohol intake: current Alcohol intake frequency: holidays/special occasions only Patient Tobacco Use Status: Former Tobacco user e-Cigarette/Vaping Use: Never Used Second Hand Smoke Exposure: Yes service: Yes Current occupational status: retired Cognitive needs: No Hearing needs: No Vision needs: No Review of Systems Const Denies chills and Denies fever(s) Card Reports no additional complaints and Denies syncope Resp Denies cough GI Denies abdominal pain and Denies heartburn Reports as per HPI and Denies change in libido Neuro Denies syncope Psych Denies change in libido Endo Denies change in libido Physical Exam Const General: cooperative, healthy appearing, comfortable and no acute distress Orientation/consciousness: patient oriented x3 HEENT Face and sinus: Yes normal facial exam Mouth: moist mucous membranes Neck Neck: Yes normal visual inspection, Yes full ROM and Yes trachea midline Chest Chest palpation & inspection: normal inspection of the chest Resp Effort & Inspection: normal respiratory effort, able to speak in complete sentences and no respiratory distress GI Inspection: Yes normal to inspection Back/Spine/Pelvis Cervical Spine: normal cervical lordosis Thoracic/Lumbar Spine: thoracic and lumbar spine normal to inspection Skin General skin exam: no rashes or lesions noted Neuro General: patient oriented x3, gait normal, tone normal and moves all extremities Extrem General: Yes normal to inspection and Yes capillary refill normal Assessment & Plan Assessment & Plan (1) BPH w urinary obs/LUTS: Code(s): N40.1 - Benign prostatic hyperplasia with lower urinary tract symptoms; N13.8 - Other obstructive and reflux uropathy Category: Medical (2) Elevated PSA: Code(s): R97.20 - Elevated prostate specific antigen [PSA] Category: Medical Plan 12 month follow-up Orders: Orders PSA,Total (Free>4and<10) 364 Days R97.20 - Elevated prostate specific antigen [PSA] Patient Instructions: Imaging studies, laboratory and physical exam results were discussed and reviewed in detail. No major barriers to patient understanding were identified. An opportunity to ask questions regarding the treatment plan was provided. All questions were answered. The patient expressed understanding and agreement with the above treatment plan. The patient is aware they should contact our office by phone for worsening of their current condition or the appearance of new urologic symptoms. Compliance is encouraged with any medications and followup testing that is ordered. It is a privilege to participate in the urologic care of your patient. If you have any questions or concerns regarding treatment for the above conditions, or other urologic issues, please do not hesitate to contact me. The office telephone contact is [phone]. This note is constructed using voice recognition software. While every effort has been made to ensure accuracy prop making supervisor errors may have been included. Yours sincerely, Dr Scotty Martínez MD, [facility] - Urology Providers of Expert, Compassionate Care for the Genitourinary System Coding Level of Care Code Est Pt Level 3 (72258) Diagnoses BPH w urinary obs/LUTS N40.1; N13.8 Elevated PSA R97.20
== END 2024-05-01 11:51 | disposition home or self-care (01) ==
PROVIDERS: PCP Nurse Practitioner Family; Visit Provider Urology
DX: N40.1 Benign prostatic hyperplasia with lower urinary tract symptoms (principal); N13.8 Other obstructive and reflux uropathy; R97.20 Elevated prostate specific antigen [PSA]
CPT/HCPCS: 99213

== ENCOUNTER → 2024-05-01 11:24 | Outpatient (BNVA) | payer MEDICARE, BC, SELFPAY | PROVIDERS: PCP Nurse Practitioner Family; Visit Provider Urology | DX: N40.1 Benign prostatic hyperplasia with lower urinary tract symptoms (principal); N13.8 Other obstructive and reflux uropathy; R97.20 Elevated prostate specific antigen [PSA] | CPT/HCPCS: 99212 ==

== ENCOUNTER 2024-08-14 10:51 | Outpatient (AMB) | payer MEDICARE, BC, SELFPAY ==
[2024-08-14 10:55] VITALS: BP 128/78; PULSE 78; O2SAT 99; BMI 24.6
--- NOTE | 2024-08-14 10:55 | A.OFFPC_ITS ---
Vital Signs 08/14/24 10:55 Height 5 ft 8 in Weight 162 lb BMI 24.6 BP 128/78 Blood Pressure Location Lt brachial Position Sitting Pulse 78 Pulse Source Pulse Oximeter Pulse Oximetry (%) 99 Oxygen Delivery Method Room Air Intake Visit Reasons: PE Intake Note: Pt is here today for PE. Allergies No Known Allergies Allergy (Verified 08/14/24 10:56) Tobacco use date assessed: 08/14/24 Fall risk assessment: No Falls in past year Last assessed Fall Risk: 08/14/24 Dental Screening Dental Screen Date: 01/15/24 HPI PE HPI Details History of Present Illness The patient is a 69-year-old male presenting for a routine physical examination. He reports no specific concerns or symptoms. He denies gastrointestinal issues such as constipation and diarrhea. He reports no neurological symptoms, including numbness, as well as no cardiovascular symptoms like chest pain or shortness of breath. He also denies any urinary symptoms. The patient regularly sees a urologist and a center maker hand and has an up-to-date colonoscopy. He proceeds with regular health maintenance visits and ensures his screenings are current. Health Maintenance - Colonoscopy is up to date. - Regular consultations with a urologist and a center maker hand advised. - Encouraged to obtain fasting laborator y tests in the near future. Social History Review of Systems - Gastrointestinal: Denies constipation and diarrhea. - Neurological: Denies numbness or other neurological symptoms. - Cardiovascular: Denies chest pain and shortness of breath. - Genitourinary: Denies urinary symptoms . Physical Exam General: Cooperative, healthy appearing, comfortable, no acute distress and well developed Orientation: Patient oriented x3 Limitations: No limitations Head: Normal to inspection Ears: Hearing grossly normal bilaterally Nose: Normal external nose present Face and sinus: Normal facial exam Eyes: Appearance normal, both eyes and all related structures Neck: Normal visual inspection and Yes full ROM Respiratory: Normal respiratory effort and able to speak in complete sentences. Clear to auscultation bilaterally Cardiovascular: Regular rate and rhythm. Normal S1 and S2 GI: Normal to inspection. Soft to palpation and nontender Skin: No rashes or lesions noted Neuro: Patient oriented x3, positive patellar reflexes Extremities: Normal to inspection, no edema Results Plan - Encourage patient to have fasting labo ratory tests conducted soon. - Continue regular visits with urologist and center maker hand. - Schedule next routine physical examina tion for one year. Patient was informed and verbally consented to the use of an ambient scribe for clinic note documentation during this visit. Discussion Notes During the visit, I confirmed with the patient that he currently experiences no symptoms that are concerning. We discussed the importance of health maintenance and keeping his routine screenings, such as a colonoscopy, up to date. Given the normal findings on the examination and the patient's established routine with his specialists, I encouraged him to have his laboratory tests done soon to monitor his health parameters further. We agreed to a follow-up physical examination in a year's time barring any new health developments. Patient Instructions - Obtain fasting laboratory tests as wolfgang n as possible. - Continue regular appointments with you r urologist and center maker hand. - Return for routine physical examinatio n in one year. [facility] Medical History Shoulder pain, right Surgical History History of neck surgery Hx of cholecystectomy Family History Father CKD (chronic kidney disease) Mother No problems noted. Maternal Grandmother Medical history non-contributory Social History Housing: House Alcohol intake: current Alcohol intake frequency: holidays/special occasions only Patient Tobacco Use Status: Former Tobacco user e-Cigarette/Vaping Use: Never Used Second Hand Smoke Exposure: Yes service: Yes Current occupational status: retired Cognitive needs: No Hearing needs: No Vision needs: No Questionnaire PHQ-9 Over the last 2 weeks, how often have you been bothered by any of the following problems? 74037 - PHQ-9 Billing: Patient declined-do not bill Source: Developed by Drs. Gigi Luque, Elina Keith, Jose Maria Hernandez and colleagues, with an educational wilfrid from [employer] Thrive Questionnaire Date Thrive assessed: 08/07/24 I am a: Patient What is your living situation today?: I have a steady place to live Within the past 12 months, did the food you bought not last and you didn't have the money to get more?: I choose not to answer this question Within the past 12 months, did you worry whether your food would run out before you got money to buy more?: I choose not to answer this question Do you have trouble paying for medicines?: I choose not to answer this question Do you have trouble getting transportation to medical appointments?: I choose not to answer this question Do you have trouble paying your heating and electricity bill?: I choose not to answer this question Do you have trouble taking care of your child, family member or friend?: I choose not to answer this question Do you have trouble with day-to-day activities such as bathing, preparing meals, shopping, managing finances, etc.?: I choose not to answer this question Are you currently unemployed and looking for a job?: I choose not to answer this question Are you interested in more education?: I choose not to answer this question Please select the resources that you would like help with: None Currently or been in a relationship where the following occur: I choose not to answer THRIVE Score: 0 AUDIT C Alcohol Use Questionnaire (AUDIT-C) 1. How often do you have a drink containing alcohol?: Monthly or less 2. How many drinks containing alcohol do you have on a typical day when you are drinking?: 1 or 2 3. How often do you have six or more drinks on one occasion?: Less than monthly Total Score: 2 JOSE CARLOS-7 AMB Questionnaire JOSE CARLOS-7 Date JOSE CARLOS - 7 assessed: 01/15/24 Feeling nervous, anxious, or on edge: 0 = Not at all Not being able to stop or control worryin = Not at all Worrying too much about different things: 0 = Not at all Trouble relaxin = Not at all Being so restless that it is hard to sit still: 0 = Not at all Becoming easily annoyed or irritable: 0 = Not at all Feeling afraid as if something awful might happen: 0 = Not at all Total JOSE CARLOS-7 score (0-4 normal; 5-9 mild; 10-14 moderate; 15-21 severe): 0 Source: Developed by Drs. Gigi Luque, Elina Keith, Jose Maria Hernandez and colleagues, with an educational wilfrid from [employer] Physical exam (Primary Care) Vital Signs: Last Vital Signs Pulse 78 08/14/24 10:55 BP 128/78 12/26/24 10:55 Pulse Ox 99 08/14/24 10:55 Oxygen Delivery Method Room Air 08/14/24 10:55 BMI result Body Mass Index 24.6 Tobacco/Smoking Status: Tobacco use Status Tobacco use date assessed 08/14/24 08/14/24 10:59 Patient Tobacco Use Status Former Tobacco user 08/14/24 10:59 e-Cigarette/Vaping Use Never Used 08/14/24 10:59 Thrive Assessment: Date of Thrive Assessment Date Thrive assessed 08/07/24 08/14/24 10:59 Currently or been in a relationship where the following occur: I choose not to answer Coding Level of Care Code Est Pt Prev Care >65y(81720) Diagnoses Physical exam Z00.00 Assessment & Plan Assessment & Plan (1) Physical exam: Code(s): Z00.00 - Encounter for general adult medical examination without abnormal findings Category: Medical Plan . Orders: Orders Complete Blood Count Auto Diff Today Z00.00 - Encounter for general adult medical examination without abnormal findings Comprehensive [place]. Panel Fast Today Z00.00 - Encounter for general adult medical examination without abnormal findings TSH reflex Free T4 Today Z00.00 - Encounter for general adult medical examination without abnormal findings UA CC w/rflx Micro + Cult Today Z00.00 - Encounter for general adult medical examination without abnormal findings Lipid Panel Today Z00.00 - Encounter for general adult medical examination without abnormal findings
== END 2024-08-14 11:31 | disposition home or self-care (01) ==
PROVIDERS: PCP Nurse Practitioner Family; Visit Provider Nurse Practitioner Family
DX: Z00.00 Encounter for general adult medical examination without abnormal findings (principal)

== ENCOUNTER → 2024-08-14 10:51 | Outpatient (BNVA) | payer MEDICARE, BC, SELFPAY | PROVIDERS: PCP Nurse Practitioner Family; Visit Provider Nurse Practitioner Family | DX: Z00.00 Encounter for general adult medical examination without abnormal findings (principal) | CPT/HCPCS: 99397 ==

== ENCOUNTER 2024-08-21 07:15 | Outpatient (REF) | payer MEDICARE, BC, SELFPAY ==
[2024-08-21 10:03] LABS: MANUAL DIFF FLAG NO
[2024-08-21 10:06] LABS: Appearance Urine Clear; Color Urine Yellow; Glucose Urine UA Negative (Negative); Leukocyte Esterase Urine Negative (Negative); Nitrite Urine Negative (Negative); PH 6.5 (5.0-9.0); Specific Gravity - Urine 1.025 (1.005-1.025); Urine Blood Negative (Negative); Urine Ketones Negative (Negative); Urine Protein Negative (Neg-Trace)
[2024-08-21 10:07] LABS: Basophils Absolute Auto 0.1 X10*3/uL (0.0-0.2); Basophils Percent Auto 0.7 % (0-2); Eosinophils Absolute Auto 0.2 X10*3/uL (0.0-0.4); Eosinophils Percent Auto 2.2 % (0-4); Hematocrit 45.3 % (42.0-52.0); Imm Gran Abs Auto 0.03 X10*3/uL (0.00-0.03); Imm Gran Pct Auto 0.4 % (0.0-0.4); Lymphocytes Absolute Auto 2.3 X10*3/uL (1.2-4.9); Lymphocytes Percent Auto 34.4 % (20-40); Mean Corpuscular HGB Conc 33.1 g/dl (31.0-36.0); Mean Corpuscular Hemoglobin 28.1 pg (27.0-33.0); Mean Corpuscular Volume 84.8 fL (80.0-98.0); Monocytes Absolute Auto 0.7 X10*3/uL (0.1-1.2); Monocytes Percent Auto 10.9 % (2-11); Neutrophils Absolute Auto 3.5 x10*3/uL (2.0-8.3); Neutrophils Percent Auto 51.4 % (45-73); Platelet Count 285 X10*3/uL (160-400); Red Blood Count 5.34 X10*6/uL (4.60-5.80); Red Cell Distribution Width 13.1 % (11.0-16.0); White Blood Count 6.8 X10*3/uL (4.8-10.8)
[2024-08-21 10:30] LABS: Alanine Aminotransferase 17 U/L (0-40); Albumin Level 3.9 g/dL (3.5-5.0); Alkaline Phosphatase 86 U/L (39-117); Anion Gap 9 (12-20); Aspartate Amino Transferase 25 U/L (5-37); Bilirubin Total 0.4 mg/dL (0.0-1.0); Blood Urea Nitrogen 17 mg/dL (9-16); Calcium 8.8 mg/dL (8.4-10.2); Carbon Dioxide 28 mmol/L (22-29); Chloride 107 mmol/L (96-108); Cholesterol 180 mg/dL (<200); Estimated Glomerular Filt Rate > 60; Glucose Fasting 101 mg/dL (60-99); HDL Cholesterol 44 mg/dL (>40); LDL Cholesterol Calculated 123 mg/dL (<100); Potassium 4.3 mmol/L (3.3-5.1); Sodium 140 mmol/L (135-145); Total Protein 6.1 g/dL (6.5-8.0); Triglycerides 67 mg/dL (<150)
[2024-08-21 11:27] LABS: Free T4 (Free Thyroxine) 1.12 ng/dL (0.71-1.85)
== END 2024-08-21 07:16 | disposition home or self-care (01) ==
LOC: HO.HMGCLDS 07:15
PROVIDERS: PCP Nurse Practitioner Family; Visit Provider Nurse Practitioner Family
DX: Z00.00 Encounter for general adult medical examination without abnormal findings (principal)
CPT/HCPCS: 36415; 80053; 80061; 81003; 84439; 84443; 85025

== ENCOUNTER 2024-10-21 13:34 | Outpatient (REF) | payer MEDICARE, BC, SELFPAY ==
[2024-10-21 17:11] LABS: TSH reflex Free T4 2.31 uIU/mL (0.32-4.0)
[2024-10-22 18:23] LABS: Thyroid Peroxidase Antibodies 4 IU/mL (<9)
== END 2024-10-21 13:35 | disposition home or self-care (01) ==
LOC: HO.HMGCLDS 13:34
PROVIDERS: PCP Nurse Practitioner Family; Visit Provider Nurse Practitioner Family
DX: R94.6 Abnormal results of thyroid function studies (principal)
CPT/HCPCS: 36415; 84443; 86376

== ENCOUNTER 2025-01-13 09:24 | Outpatient (AMB) | payer MEDICARE, BC, SELFPAY ==
--- NOTE | 2025-01-13 10:34 | AM.OFFWIN_ITS ---
Intake Vital Signs 01/13/25 10:37 Weight 156 lb BP 114/70 Blood Pressure Location Rt brachial Position Sitting Pulse 78 Pulse Source Pulse Oximeter Temp 97.9 F Temp Source Oral Pulse Oximetry (%) 98 Oxygen Delivery Method Room Air Intake Visit Reasons: EP ? sinus infection Intake Note: Patient here for congestion, dry throat, fatigue that started last Sunday. Patient Tobacco Use Status: Former Tobacco user Allergies No Known Allergies Allergy (Verified 01/13/25 10:39) Do you need a note to return to daycare/school/sports/work: No HPI HPI Comments History of Present Illness Details History - The patient is a 69-year-old male pres enting with respiratory symptoms and concerns for potential infection. - Symptoms began eight days ago with a s ensation of malaise and evolved into a persistent throat tickle. - Associated with coughing up phlegm, ch ills, fatigue, and reduced energy levels. - The patient experienced chills but did not record any significant fever and reported shortness of breath with wheezing. - No history of asthma, COPD, or inhaler usage, although there is a past history of smoking. - Current ejwj-rgz-amavppg treatments in [facility] and [facility] with questionable effectiveness. Physical Exam General: Cooperative, healthy appearing, comfortable and no acute distress Orientation/consciousness: Patient oriented x3 Limitations: No limitations Head: Normal to inspection Ears: Hearing grossly normal bilaterally, external ears normal and TM's normal bilaterally Nose: Normal external nose present, Normal nares present and No nasal discharge present Face and sinus: Normal facial exam and Yes sinuses nontender Mouth: Normal oral and palatal mucosa present and moist mucous membranes Throat: Yes tonsils normal, Yes uvula midline. Posterior oropharynx erythema Eyes: Appearance normal, both eyes and all related structures Neck: Normal visual inspection Respiratory: Left side exp wheeze, RUL with rhonchi. Normal respiratory effort, able to speak in complete sentences, Actively coughing, no respiratory distress, not tachypneic, no tripod positioning and no use of accessory muscles. Cardiovascular: Regular rate and rhythm. Normal S1 and S2 Skin: No rashes or lesions noted Neuro: Patient oriented x3 Extremities: Normal to inspection and Yes no clubbing, cyanosis or edema PFSH Medical History Shoulder pain, right Surgical History History of neck surgery Hx of cholecystectomy Family History Father CKD (chronic kidney disease) Mother No problems noted. Maternal Grandmother Medical history non-contributory Social History Housing: House Alcohol intake: current Alcohol intake frequency: holidays/special occasions only Patient Tobacco Use Status: Former Tobacco user e-Cigarette/Vaping Use: Never Used Second Hand Smoke Exposure: Yes service: Yes Current occupational status: retired Cognitive needs: No Hearing needs: No Vision needs: No Review of Systems Const All systems reviewed & are unremarkable except as noted in HPI and below Physical Exam Vital Signs: Last Vital Signs Temp 97.9 F 01/13/25 10:37 Pulse 78 01/13/25 10:37 BP 114/70 01/13/25 10:37 Pulse Ox 98 01/13/25 10:37 Oxygen Delivery Method Room Air 01/13/25 10:37 Assessment & Plan Assessment & Plan (1) Lower respiratory infection (e.g., bronchitis, pneumonia, pneumonitis, pulmonitis): Code(s): J22 - Unspecified acute lower respiratory infection Plan: VSS, pt well appearing and PE remarkable for rhonchi and exp wheezes. I will proceed with a dual treatment strategy consisting of a six-day taper of oral steroids to mitigate airway inflammation and wheezing, with instructions to consume the complete dose in the morning. I am concurrently prescribing a Z-Johnathan to cover potential bacterial pathogens and to achieve an anti-inflammatory effect. The patient is advised to obtain an immediate chest x-ray to exclude pneumonia, with follow-up contact planned to discuss results and potential additional antibiotic therapy (Augmentin) if pneumonia is confirmed. Prescriptions will be sent to [facility] in [place], with phone contact established for coordinated care. The management plan aims to address the probable infectious etiology and ensure respiratory symptoms' resolution. Patient was informed and verbally consented to the use of an ambient scribe for clinic note documentation during this visit Orders: Orders XR chest 2V Today R05.9 - Cough, unspecified Medications: New methylprednisolone PO PER PKG DIR for 6 days 21 ea 0RF azithromycin For 250 mg dose pack: take 500 mg today (day 1), then 250 mg for 4 days (days 2-5) PO 6 tabs 0RF Coding Level of Care Code Est Pt Level 4 (83487) Diagnoses Lower respiratory infection (e.g., bronchitis, pneumonia, pneumonitis, pulmonitis) J22
[2025-01-13 10:37] VITALS: BP 114/70; PULSE 78; TEMP 36.6; O2SAT 98
== END 2025-01-13 11:07 | disposition home or self-care (01) ==
PROVIDERS: PCP Nurse Practitioner Family; Visit Provider Physician Assistant
DX: J22 Unspecified acute lower respiratory infection (principal)

== ENCOUNTER 2025-01-13 09:24 | Outpatient (REF) | payer MEDICARE, BC, SELFPAY ==
--- NOTE | ~2025-01-13 | XR_ITS ---
EXAMINATION: XR CHEST CLINICAL INFORMATION: R05.9 - Cough, unspecified COMPARISON: December 10, 2023 TECHNIQUE: 2 views of the chest were obtained. FINDINGS: No consolidation, pleural effusion or pneumothorax. Cardiomediastinal silhouette size is normal. Multilevel lower thoracic and upper lumbar spondylosis. 30% volume loss with the endplate sclerosis at the T12 vertebra. Vascular clips right upper quadrant abdomen. XR/XR chest 2V IMPRESSION: No acute airspace disease. Old superior endplate compression deformity, T12. Probably Status post cholecystectomy. Electronically signed by: Cory Rabago MD 01/13/2025 11:42 AM EDT
== END 2025-01-13 09:25 | disposition home or self-care (01) ==
LOC: HO.HMGCX 09:24
PROVIDERS: PCP Nurse Practitioner Family; Visit Provider Physician Assistant
DX: J22 Unspecified acute lower respiratory infection (principal); R05.9 Cough, unspecified
CPT/HCPCS: 71046; 99212

== ENCOUNTER → 2025-01-13 11:08 | Outpatient (BNV) | payer MEDICARE, BC, SELFPAY | PROVIDERS: PCP Nurse Practitioner Family; Visit Provider Radiology Diagnostic Radiology | DX: R05.9 Cough, unspecified (principal) | CPT/HCPCS: 71046 ==

== ENCOUNTER 2025-04-07 10:05 | Outpatient (REF) | payer MEDICARE, BC, SELFPAY ==
[2025-04-07 14:07] LABS: Resp Syncy Virus RNA Qual PCR NEGATIVE (Negative); SARS COV2 PCR INHOUSE POSITIVE (Negative)
== END 2025-04-07 10:06 | disposition home or self-care (01) ==
LOC: HO.LAB 10:05
PROVIDERS: Physician Assistant; PCP Nurse Practitioner Family
DX: J06.9 Acute upper respiratory infection, unspecified (principal); R09.89 Other specified symptoms and signs involving the circulatory and respiratory systems; Z13.89 Encounter for screening for other disorder
CPT/HCPCS: 87637; 87880; 99212

== ENCOUNTER 2025-04-07 10:05 | Outpatient (AMB) | payer MEDICARE, BC, SELFPAY ==
[2025-04-07 10:47] VITALS: BP 122/70; PULSE 67; TEMP 36.7; O2SAT 98; BMI 23.7
--- NOTE | 2025-04-07 10:47 | AM.OFFWIN_ITS ---
Intake Vital Signs 04/07/25 10:47 Height 5 ft 8 in Weight 156 lb BMI 23.7 BP 122/70 Blood Pressure Location Lt brachial Position Sitting Pulse 67 Pulse Source Pulse Oximeter Temp 98.0 F Temp Source Oral Pulse Oximetry (%) 98 Oxygen Delivery Method Room Air Intake Visit Reasons: EP-sore throat, headaches, fever Intake Note: presents with sore/scratchy throat, cough sometimes productive, headaches, watery eyes Patient Tobacco Use Status: Former Tobacco user Allergies No Known Allergies Allergy (Verified 04/07/25 10:51) Do you need a note to return to daycare/school/sports/work: No HPI HPI Comments History of Present Illness Details History - The patient is a 70-year-old male pres enting with symptoms of fever, sore throat, cough, headaches, ear discomfort, and loss of taste. - Symptoms began 4 days ago with low gra de fever and chills, leading to prolonged bed rest. - Shortness of breath was present, but n o wheezing was reported. - The patient has not used frgi-hvx-aidu ter medications due to doubts about their efficacy. - The patient has a history of smoking, having quit 25 years ago. - Asking for steroids Physical Exam General: Cooperative, healthy appearing, comfortable and no acute distress Orientation/consciousness: Patient oriented x3 Limitations: No limitations Head: Normal to inspection Ears: Hearing grossly normal bilaterally, external ears normal and TM's normal bilaterally Nose: Normal external nose present, Normal nares present and No nasal discharge present Face and sinus: Normal facial exam and Yes sinuses nontender Mouth: Normal oral and palatal mucosa present and moist mucous membranes Throat: Yes tonsils normal, Yes uvula midline. Posterior oropharynx erythema, no exudates Eyes: Appearance normal, both eyes and all related structures Neck: Normal visual inspection, full ROM Respiratory: Clear to auscultation bilaterally. Normal respiratory effort, able to speak in complete sentences, Actively coughing, no respiratory distress, not tachypneic, no tripod positioning and no use of accessory muscles Cardiovascular: Regular rate and rhythm. Normal S1 and S2 Skin: No rashes or lesions noted Neuro: Patient oriented x3 Extremities: Normal to inspection and Yes no clubbing, cyanosis or edema PFSH Medical History Shoulder pain, right Surgical History History of neck surgery Hx of cholecystectomy Family History Father CKD (chronic kidney disease) Mother No problems noted. Maternal Grandmother Medical history non-contributory Social History Housing: House Alcohol intake: current Alcohol intake frequency: holidays/special occasions only Patient Tobacco Use Status: Former Tobacco user e-Cigarette/Vaping Use: Never Used Second Hand Smoke Exposure: Yes service: Yes Current occupational status: retired Cognitive needs: No Hearing needs: No Vision needs: No Review of Systems Const All systems reviewed & are unremarkable except as noted in HPI and below Physical Exam Vital Signs: Last Vital Signs Temp 98.0 F 04/07/25 10:47 Pulse 67 04/07/25 10:47 BP 122/70 04/07/25 10:47 Pulse Ox 98 04/07/25 10:47 Oxygen Delivery Method Room Air 04/07/25 10:47 BMI result Body Mass Index 23.7 Results AMB Rapid Strep AMB Rapid Strep Negative Last Edit by Candice Faustin MA on 04/07/25 14:17 Results Reviewed Results Reviewed: Laboratory Last Values Strep Scn Rapid Clinic Negative 04/07/25 13:59 Assessment & Plan Assessment & Plan (1) Upper respiratory tract infection: Code(s): J06.9 - Acute upper respiratory infection, unspecified Qualifiers: URI type: unspecified viral URI Qualified Code(s): J06.9 - Acute upper respiratory infection, unspecified Plan: Plan - VSS, pt well appearing and PE unremarkable. This is likely a viral syndrome, high suspicion for Covid. - Viral testing done for flu, COVID-19, and RSV later today or tomorrow. - Vuxb-mlb-rawzjvs medications such as Tylenol and ibuprofen were recommended for fever and body aches. - Allegro-D was recommended for its decongestant and antihistamine properties. - The patient was advised to rest, hydrate, and monitor symptoms, with instr uctions to seek emergency care if symptoms worsen. - No steroids were prescribed as the patient's lungs were clear and there was no wheezing therefore, not indicated. Patient was informed and verbally consented to the use of an ambient scribe for clinic note documentation during this visit Orders: Orders SARS-CoV2/FLU/RSV Today R09.89 - Other specified symptoms and signs involving the circulatory and respiratory systems AMB Rapid Strep Screen Today Z13.9 - Encounter for screening, unspecified Coding Level of Care Code Est Pt Level 3 (34296) Diagnoses Viral upper respiratory tract infection J06.9 URI type: unspecified viral URI
--- OUTSIDE RECORDS SUMMARY | 2025-04-07 11:17 | XMS_ITS | Patient Health Record ---
Author Organization [facility] Address [address] [place] [address] Care Team Providers Care Welfare Service Aide Name Role Phone Carlos Gary M.D. Primary Care Provider Eleonora Shane Horton Jr Unavailable Reason For Referral No Information Medications Medication SIG (Take, Route, Frequency, Duration) Notes Start Date End Date Status Colyte with Flavor Packs 240 GM As directed Orally Over the specified time. for 1 day(s) 08/28/2018 Active Immunizations Vaccine Route Administration Date Status Comme nts Influenza Unknown 08/28/2018 Refused Social History Tobacco Use: Social History Observation Description Date Details (start date - stop date) Never Smoker NA - NA Tobacco Use/Smoking Question Answer Notes Patient is a nonsmoker Alcohol Screen Question Answer Notes Did you have a drink contain ing alcohol in the past year? Yes How often did you have a dri nk containing alcohol in the past year? 2 to 4 times a month (2 points) How many drinks did you have on a typical day when you were drinking in the past year? 1 or 2 drinks (0 point) How often did you have 6 or more drinks on one occasion in the past year? Never (0 point) Points 2 Interpretation Negative Problems Problem Type SNOMED Code ICD Code Onset Dates Problem Status W/U Status Risk Notes Problem [id number] Special screenin g for malignant neoplasms, colon (Z12.11) Active confirmed Problem 11368837 Encounter for other preprocedural examination (Z01.818) Active confirmed Plan Of Treatment Future Test Test Name Order Date COLONOSCOPY 08/28/2018 Insurance Providers Payer Name Payer Address Payer Phone Subscriber Number Group Number Insured Name Patient Relationship to Insured Coverage Start Date Coverage End Date [facility] [address] [place], [place] [id number] ROSA ELENA RIGGS Self - patient is the insured Medical (General) History Medical History History ICD Code Denies [place],DM,CVA,Lung disease,renal dise ase Surgical History Surgery Date(Month/Year) neck fusion x3 1992,1997,1999 cholecystectomy 1999
== END 2025-04-07 12:39 | disposition home or self-care (01) ==
PROVIDERS: PCP Nurse Practitioner Family; Visit Provider Physician Assistant
DX: Z13.9 Encounter for screening, unspecified (principal); J06.9 Acute upper respiratory infection, unspecified

== ENCOUNTER 2025-04-23 08:40 | Outpatient (REF) | payer MEDICARE, BC, SELFPAY ==
--- OUTSIDE RECORDS SUMMARY | 2025-04-23 09:11 | XMS_ITS | Patient Health Record ---
Author Organization [facility] Address [address] [place] [address] Care Team Providers Care Blood Donor Unit Assistant Name Role Phone Carlos Gary M.D. Primary [...] Problem Status W/U Status Risk Notes Problem [id number] Special screenin g for malignant neoplasms, colon (Z12.11) Active confirmed Problem 14120063 Encounter for other preprocedural examination (Z01.818) Active confirmed Plan Of Treatment Future Test Test Name Order Date COLONOSCOPY 08/28/2018 Insurance Providers Payer Name Payer Address Payer Phone Subscriber Number Group Number Insured Name Patient Relationship to Insured Coverage Start Date Coverage End Date [facility] [address] [place], [place] [id number] ROSA ELENA RIGGS Self - patient is the insured Medical (General) History Medical History History ICD Code Denies [place],DM,CVA,Lung disease,renal dise ase Surgical History Surgery Date(Month/Year) neck fusion x3 1992,1997,1999 cholecystectomy 1999
[2025-04-23 11:01] LABS: PSA,Total (Free>4and<10) 4.28 ng/mL (0.00-4.00)
[2025-04-27 13:48] LABS: Free Prostate Spec Ag 0.6 ng/mL; Percent Free Prostate Spec Ag 15 % (calc) (>25)
== END 2025-04-23 08:41 | disposition home or self-care (01) ==
LOC: HO.HMGCLDS 08:40
PROVIDERS: PCP Nurse Practitioner Family; Visit Provider Urology
DX: Z12.5 Encounter for screening for malignant neoplasm of prostate (principal); R97.20 Elevated prostate specific antigen [PSA]
CPT/HCPCS: 36415; 84153; 84154

== ENCOUNTER 2025-05-01 13:40 | Outpatient (AMB) | payer MEDICARE, BC, SELFPAY ==
--- NOTE | 2025-05-01 13:46 | MHC.OFFVIS ---
Intake Visit Reasons: 1y/PSA Intake Note: Patient is Present for: 1yr Follow Up PSA Urology Medication: Finasteride Blood Thinners:None labs done 04/23/25: free psa 0.6, % psa 15, t-psa 4.28, off-site psa 4.0 today's pvr: 73mls [employer] E[employer] Developer Required: No Accompanied by: Self / Same As Patient Allergies No Known Allergies Allergy (Verified 05/01/25 13:48) HPI Comments Details: Klever is a very pleasant male. He is a patient of Dr. Farrell. Seen for the following urologic conditions - lower urinary tract symptoms - elevated PSA Twelve month follow-up Has been on finasteride daily PSA sitting at 4.0 Had been as high as 5.1 in 2015 Right apical nodule on PAT Six-month follow-up repeat PSA Elevated PSA/LUTS He presents for - further evaluation of elevated PSA Current management is finasteride -taking daily Laboratory investigations include - a total PSA evaluation 02/02 5.1, 08/08 5.1, 04/09 6.1 F28%, 09/10 4.5 27%, 04/10 3.8, 09/11 4.5, 05/12 4.3 20%, 11/10 3.8, 05/13 3.4, 05/14 4.0 15% Imaging investigations include - none Individualized Prostate Cancer Risk Calculator - 5-10% risk of prostate cancer. A TRUS biopsy - has not been performed Symptoms include - 09/09 minimal Overall symptoms are mild Therapeutic plan will be - continue finasteride PSA surveillance [facility] Medical History Shoulder pain, right Surgical History History of neck surgery Hx of cholecystectomy Family History Father CKD (chronic kidney disease) Mother No problems noted. Maternal Grandmother Medical history non-contributory Social History Housing: House Alcohol intake: current Alcohol intake frequency: holidays/special occasions only Patient Tobacco Use Status: Former Tobacco user e-Cigarette/Vaping Use: Never Used Second Hand Smoke Exposure: Yes service: Yes Current occupational status: retired Cognitive needs: No Hearing needs: No Vision needs: No Review of Systems Const Denies chills and Denies fever(s) Card Reports no additional complaints and Denies syncope Resp Denies cough GI Denies abdominal pain and Denies heartburn Reports as per HPI and Denies change in libido Neuro Denies syncope Psych Denies change in libido Endo Denies change in libido Physical Exam Const General: cooperative, healthy appearing, comfortable and no acute distress Orientation/consciousness: patient oriented x3 HEENT Face and sinus: Yes normal facial exam Mouth: moist mucous membranes Neck Neck: Yes normal visual inspection, Yes full ROM and Yes trachea midline Chest Chest palpation & inspection: normal inspection of the chest Resp Effort & Inspection: normal respiratory effort, able to speak in complete sentences and no respiratory distress GI Inspection: Yes normal to inspection Rectal Exam - Male: Yes normal sphincter tone and Yes prostate normal Male General Exam: Yes normal external exam Penis: normal penis and circumcised Meatus: meatus normal Scrotum: scrotum normal Testes: Testes normal Back/Spine/Pelvis Cervical Spine: normal cervical lordosis Thoracic/Lumbar Spine: thoracic and lumbar spine normal to inspection Skin General skin exam: no rashes or lesions noted Neuro General: patient oriented x3, gait normal, tone normal and moves all extremities Extrem General: Yes normal to inspection and Yes capillary refill normal Assessment & Plan Assessment & Plan (1) Elevated PSA: Code(s): R97.20 - Elevated prostate specific antigen [PSA] Category: Medical Plan Six-month follow-up repeat PSA and PAT Orders: Orders PSA,Total (Free>4and<10) 6 Months R97.20 - Elevated prostate specific antigen [PSA] Medications: Refilled finasteride 5 mg PO DAILY 90 tabs 3RF 90 days N13.8 - Other obstructive and reflux uropathy, N40.1 - Benign prostatic hyperplasia with lower urinary tract symptoms Patient Instructions: This note is constructed using voice recognition software. While every effort has been made to ensure accuracy french cord binder errors may have been included. Imaging studies, laboratory and physical exam results were discussed and reviewed in detail. No major barriers to patient understanding were identified. An opportunity to ask questions regarding the treatment plan was provided. All questions were answered. The patient expressed understanding and agreement with the above treatment plan. The patient is aware they should contact our office by phone for worsening of their current condition or the appearance of new urologic symptoms. Compliance is encouraged with any medications and followup testing that is ordered. It is a privilege to participate in the urologic care of your patient. If you have any questions or concerns regarding treatment for the above conditions, or other urologic issues, please do not hesitate to contact me. The office telephone contact is [phone]. Sincerely, Dr Scotty Martínez MD, [facility] - Urology Compassionate Specialist Care for the Genitourinary System Coding Level of Care Code Est Pt Level 4 (36774) Diagnoses Elevated PSA R97.20
--- OUTSIDE RECORDS SUMMARY | 2025-05-01 16:32 | XMS_ITS | Patient Health Record ---
Author Organization [facility] Address [address] [place] [address] Care Team Providers Care Horse Race Starter Name Role Phone Carlos Gary M.D. Primary [...] Problem Status W/U Status Risk Notes Problem [id number] Special screenin g for malignant neoplasms, colon (Z12.11) Active confirmed Problem [id number] Encounter for other preprocedural examination (Z01.818) Active confirmed Plan Of Treatment Future Test Test Name Order Date COLONOSCOPY 08/28/2018 Insurance Providers Payer Name Payer Address Payer Phone Subscriber Number Group Number Insured Name Patient Relationship to Insured Coverage Start Date Coverage End Date [facility] [address] [place], [place] [id number] ROSA ELENA RIGGS Self - patient is the insured Medical (General) History Medical History History ICD Code Denies CA,DM,CVA,Lung disease,renal dise ase Surgical History Surgery Date(Month/Year) neck fusion x3 1992,1997,1999 cholecystectomy 1999
== END 2025-05-01 14:20 | disposition home or self-care (01) ==
LOC: HO.HUSH 13:41
PROVIDERS: PCP Nurse Practitioner Family; Visit Provider Urology
DX: R97.20 Elevated prostate specific antigen [PSA] (principal)
CPT/HCPCS: 99214

== ENCOUNTER → 2025-05-01 13:40 | Outpatient (BNVA) | payer MEDICARE, BC, SELFPAY | PROVIDERS: PCP Nurse Practitioner Family; Visit Provider Urology | DX: R97.20 Elevated prostate specific antigen [PSA] (principal) | CPT/HCPCS: 51798; 99212 ==